=== PATIENT | male | born 1960 | race Caucasian/White ===

== ENCOUNTER 2017-07-30 07:28 | Emergency (ER) | payer OTHER, SELFPAY ==
[2017-07-30 07:30] VITALS: BP 171/86; PULSE 50; RESP 18; TEMP 36; O2SAT 100; BMI 74.9
--- NOTE | 2017-07-30 07:40 | CT_ITS ---
STUDY: CT ABDOMEN AND PELVIS WITHOUT CONTRAST REASON FOR EXAM: Male, 57 years old. Sudden onset of left-sided flank pain at 4:00 AM. RADIATION DOSAGE (If Supplied By Facility): CTDIvol = ( 17.73 ) mGy, DLP = ( 969.92 ) mGycm TECHNIQUE: Transaxial images were obtained from the dome of the diaphragm to the symphysis pubis without oral contrast, and without intravenous contrast. Sagittal and coronal images were reconstructed. Individualized dose optimization techniques were used for this CT. COMPARISON: Prior comparison studies are not available for review at this time. FINDINGS: There is patchy right basilar airspace disease and/or atelectasis. The left lung base is clear. No pleural effusions are visualized. The visualized portions of the heart are within normal limits. There is hepatomegaly with diffuse hepatic enlargement. Maximum cephalocaudal dimension of the liver is 23.6 cm. There is decreased attenuation of the liver consistent with steatosis. There are multiple gallstones. Normal spleen. Normal pancreas. Normal bilateral adrenal glands. Normal right kidney. There is mild left-sided hydronephrosis and hydroureter secondary to distal ureteral calculus measuring 2 mm in size. There is mild left-sided perinephric stranding. Normal visualized stomach. There is no evidence for dilated bowel, ascites or pneumoperitoneum. Small bowel has a grossly normal appearance. Most of the stool is visible in the right colon. The descending colon is nondistended which gives appearance of thickened wills. There are multiple colonic diverticula, most numerous in the sigmoid colon. The appendix is visualized and appears normal. Normal abdominal aorta. Normal inferior vena cava. Normal retroperitoneum. The urinary bladder is nondistended. Normal visualized prostate gland. There is a small umbilical hernia containing fat. There is a small right-sided inguinal hernia containing fat. The bones appear osteopenic. There are degenerative changes of the sacroiliac joints. There is degenerative disc disease at L5-S1. There is multilevel thoracic spondylosis. CT/Abdomen/Pelvis without Cont IMPRESSION: 1. Mild left-sided hydronephrosis and hydroureter secondary to distal ureteral calculus. 2. Hepatic steatosis and hepatomegaly. 3. Colonic diverticulosis. 4. Cholelithiasis. Electronically Signed: Jessica Guzmán MD at 8:58 EDT , Service support ,
--- NOTE | 2017-07-30 07:42 | ED.VISSUMM ---
- ER Visit Summary Date of Service: 07/30/17 Chief Complaint: [] Left flank pain for him today History of Present Illness: The patient is a 57 M [] hx of high cholesterol only that apparently is controlled with meds, went to bed feeling fine and woke at 4 AM with pain to the left flank pain does not radiate he said no documented fever cough no shortness of breath normal bowel bladder habits no trauma he points directly to the left flank he has no midline lumbar or thoracic spine pain he has no history of back pain, kidney stones AAA or other elements he is otherwise been feeling fine no vomiting he did void urine today without difficulty normal Physical Examination: [] Signs are within normal range is resting comfortably bed he points direct his left flank region. Head neck chest unremarkable the abdomen is soft nontender lungs are clear heart tones appear normal the C-spine T-spine lumbar spine are nontender his pain is clearly in the muscular left flank he has full range of motion of his lower extremities his lower extremity exams unremarkable his neurologic exams unremarkable Test Results: [] Emergency Department Course and Treatment: [] ddx rather extensive V fluids pain meds labs CT Lab studies generally unremarkable see those reports creatinine 1.46, signs of hematuria on the UA, CT shows signs of kidney stone obstructing at UVJ level, please see all those reports Reevaluation is resting comforting the bed have explained all the above to him he feels well for discharged to follow-up with Dr. Uribe know of urology as an outpatient he will be started on Percocet Naprosyn Flomax he will return for change in symptoms Treatment Plan: [] Disposition: [] Home stable Impression: [] Flank pain related to obstructing left kidney stone This note was generated with [employer] dictation software. It may contain incorrect words, spelling, and punctuation that were not noted in review of the chart prior to signing ED Disposition - Plan for ED Patient: Chief Complaint: Back Referrals: Karrie Glass [NON-STAFF] -
[2017-07-30 08:04] LABS: Absolute Lymphocyte Count 1.23 X10^3/ul (0.83-4.51); Absolute Neutrophil Count 3.4 X10^3/uL (2.0-7.7); Basophil# 0.02 X10^3/uL; Basophil% 0.4 % (0-1); Eosinophil# 0.12 X10^3/uL; Eosinophils% 2.3 % (0-5); Hematocrit 39.3 % (40-54); Hemoglobin 13.8 g/dl (13.0-16.5); Lymphocyte # 1.23 X10^3/ul (4.0); Lymphocyte % 23.9 % (19-41); Mean Corp Hgb Conc 35.1 g/gl (32-36); Mean Corpuscular Volume 88.3 fL (80-94); Mean Platelet Vol. 8.9 fl (6.2-12.0); Monocyte# 0.39 X10^3/uL; Monocyte% 7.6 % (0-10); Neutrophil # 3.38 X10^3/uL (2.7-7.7); Neutrophil % 65.6 % (47-70); Platelet Count 283 K/mm3 (150-450); RBC Distribution Width CV 12.6 % (11.6-14.6); RBC Distribution Width SD 40.3 fl (35.1-43.9); Red Blood Count 4.45 M/mm3 (4.6-6.2); White Blood Count 5.2 K/mm3 (4.4-11.0)
[2017-07-30 08:06] LABS: POSITIVE COUNT NO; POSITIVE DIFFERENTIAL NO; POSITIVE MORPHOLOGY NO
[2017-07-30 08:14] LABS: Anion Gap 5 (5-15); BUN 25 mg/dL (7-18); BUN/Creat Ratio 17.1 RATIO (10-20); Calcium,Total 8.5 mg/dL (8.5-10.1); Chloride 108 mmol/L (98-107); Creatinine, Serum 1.46 mg/dL (0.70-1.30); EST Glomerular Filtration Rate 53 mL/min (>60); Est Glom Filt Rate - Afr Amer 64 mL/min (>60); Estimated Creatinine Clearance 62.01 ml/min; Glucose 112 mg/dL (74-106); Potassium 4.5 mmol/L (3.5-5.1); Sodium Level 138 mmol/L (136-145)
[2017-07-30] MEDS: Ondansetron 4 MG/2 ML Vial IV (08:20)
[2017-07-30] MEDS: morphine 8 MG/ML Syringe IV (08:20)
[2017-07-30] MEDS: 0.9% Normal Saline 1,000 ML 250 ML IV (08:21)
[2017-07-30 08:36] LABS: Bacteria 0 SEEN /hpf (None Seen); Mucous, Urine 0 SEEN /hpf (<or=2+); Squamous Epithelial Cells - UA 0 SEEN /hpf (0-5); White Blood Cells 0 SEEN /hpf (0-5)
[2017-07-30 08:39] LABS: Color, Urine Yellow (Yellow); Glucose, Dipstick Normal (Normal); Ketone-Dipstick 5 mg/dl (Negative); Leukocyte Esterase-Dipstick Negative /ul (Negative); Nitrite-Dipstick Negative (Negative); Occult Blood-Urine 250 /ul (Negative); Protein-Dipstick 15 mg/dl (Negative); Specific Gravity, Urine 1.025 (1.002-1.030); Urine Bilirubin Dipstick Negative (Negative); Urine Clarity Clear (Clear); Urine Urobilinogen Normal (Normal)
[2017-07-30 08:47] LABS: Red Blood Cells-Urine 10-25 SEEN /hpf (0-5)
--- NOTE | 2017-07-30 09:42 | ED.DEP ---
ED Disposition - Plan for ED Patient: Chief Complaint: Back Instructions: ED Stone Renal W Colic Prescriptions: Oxycodone HCl/Acetaminophen [Percocet 5/325] 1 tab PO Q6H PRN PRN 3 Days #12 tab PRN Reason: Pain Naproxen [Naprosyn] 500 mg PO BID PRN #20 tab Tamsulosin HCl [Flomax] 0.4 mg PO DAILY #7 cap Referrals: Karrie Glass [NON-STAFF] - Bereket Jean Baptiste MD [STAFF PHYSICIAN] -
[2017-07-30 10:09] VITALS: PULSE 54; RESP 17; O2SAT 100
== END 2017-07-30 10:11 | disposition home or self-care (01) ==
PROVIDERS: Emergency Provider Emergency Medicine; Family Provider Family Medicine; PCP Family Medicine
DX: N13.2 Hydronephrosis with renal and ureteral calculous obstruction (principal); R10.9 Unspecified abdominal pain; E78.00 Pure hypercholesterolemia, unspecified; Z79.899 Other long term (current) drug therapy
CPT/HCPCS: 74176; 80048; 81001; 85025; 96361; 96374; 96375; 99284; J7030; A4216; J2405

== ENCOUNTER → 2017-08-08 14:08 | Outpatient (CLI) | payer OTHER, SELFPAY ==
[2017-08-08 17:00] LABS: Creatinine, Serum 1.33 mg/dL (0.70-1.30); EST Glomerular Filtration Rate 59 mL/min (>60); Est Glom Filt Rate - Afr Amer 72 mL/min (>60)
== END ==
PROVIDERS: Family Provider Family Medicine; PCP Family Medicine; Visit Provider Nurse Practitioner Adult Health
DX: R79.89 Other specified abnormal findings of blood chemistry (principal); N21.1 Calculus in urethra; N13.30 Unspecified hydronephrosis
CPT/HCPCS: 36415; 82565

== ENCOUNTER → 2017-08-26 08:04 | Outpatient (CLI) | payer OTHER, SELFPAY ==
[2017-08-26 10:27] LABS: Creatinine, Serum 1.31 mg/dL (0.70-1.30); EST Glomerular Filtration Rate 60 mL/min (>60); Est Glom Filt Rate - Afr Amer 73 mL/min (>60)
== END ==
PROVIDERS: Family Provider Family Medicine; PCP Family Medicine; Visit Provider Nurse Practitioner Adult Health
DX: R79.89 Other specified abnormal findings of blood chemistry (principal)
CPT/HCPCS: 36415; 82565

== ENCOUNTER 2017-09-18 01:28 | Emergency (ER) | payer OTHER, SELFPAY ==
[2017-09-18 01:29] VITALS: BP 142/84; PULSE 52; RESP 18; TEMP 36.6; O2SAT 98; BMI 33.6
--- NOTE | 2017-09-18 01:40 | ED.VISSUMM ---
- ER Visit Summary Date of Service: 09/18/17 Chief Complaint: Right upper quadrant abdominal pain History of Present Illness: The patient is a 57 M E of kidney stones and gallstones. Recent CAT scan done in July of this year showed a left ureteral calculi and incidental finding of cholelithiasis. Patient states he had dinner tonight around 6 PM he had brought worst and corn. Shortly after that he started getting right upper quadrant abdominal pain with some nausea. Denies any vomiting. Denies any diarrhea chest pain or shortness of breath. Denies prior postprandial pain or symptoms. Denies any hematuria or dysuria. No fever. Physical Examination: Well-appearing middle-age male. Vital signs are stable and afebrile. H EENT exam unremarkable. Neck nontender. Lungs clear to auscultation bilaterally. Heart regular rate and rhythm no murmur rate about 60. Abdomen is soft. Nondistended. Normal bowel sounds. No peritoneal signs. Mild tenderness right upper quadrant. Other quadrants are nontender. No Slaughter sign. No McBurney's point tenderness. No hernia or masses. No signs of obstruction. He is moving all 4 extremities. They are neurovascularly intact. Back is nontender. Neurologically he is awake and alert with no focal motor deficits. Test Results: BC shows a white count of 6. A hemoglobin is 12.6 which is lower than his most recent hemoglobin of 13.8. However he is no signs of a GI bleed. Chemistries are unremarkable his gap is 7. His creatinine is 1.39 it has been that level in the past. Liver enzymes are normal. No signs of biliary obstruction. Lipase is normal 148. Emergency Department Course and Treatment: Patient has known history of gallstones on recent CT. This very well could be biliary colic. Labs will be obtained. Currently he did not want any pain or nausea medications. Treatment Plan: Repeat exam patient is doing well on 03 28. Abdomen is benign. No Slaughter sign. No peritoneal signs. Clinically he is feeling better and is comfortable being discharged to home. He will be instructed to follow-up with Dr. Landry Jorge recreation adviser for no doc and for the [facility] tonight for further attenuation of right upper quadrant abdominal pain and known gallstones. Disposition: Discharge Impression: Acute abdominal pain secondary to biliary colic History of gallstones This note was generated with [employer] dictation software. It may contain incorrect words, spelling, and punctuation that were not noted in review of the chart prior to signing ED Disposition - Plan for ED Patient: Disposition: Home or Assisted Living Chief Complaint: Abd Pain Instructions: ED Abdominal Pain Gallstone Poss Prescriptions: Ondansetron [Zofran Odt] 8 mg PO Q8H PRN PRN #10 PRN Reason: Nausea Referrals: Carlos Jorge MD [STAFF PHYSICIAN] - As soon as possible Additional Instructions: Tylenol and motrin for pain Zofran for nausea as needed Return if increasing pain, fever or feeling worse. Call and follow up with Dr. Jorge or another general surgeon to discuss possible removal of your gall bladder due to gall stones seen on your Cat scan in July.
--- NOTE | 2017-09-18 01:43 | ED.DCSUM_ITS ---
- ER Visit Summary Date of Service: 09/18/17 Chief Complaint: Right upper quadrant abdominal pain History of Present Illness: The patient is a 57 M E of kidney stones and gallstones. Recent CAT scan done in July of this year showed a left ureteral calculi and incidental finding of cholelithiasis. Patient states he had dinner tonight around 6 PM he had brought worst and corn. Shortly after that he started getting right upper quadrant abdominal pain with some nausea. Denies any vomiting. Denies any diarrhea chest pain or shortness of breath. Denies prior postprandial pain or symptoms. Denies any hematuria or dysuria. No fever. Physical Examination: Well-appearing middle-age male. Vital signs are stable and afebrile. H EENT exam unremarkable. Neck nontender. Lungs clear to auscultation bilaterally. Heart regular rate and rhythm no murmur rate about 60. Abdomen is soft. Nondistended. Normal bowel sounds. No peritoneal signs. Mild tenderness right upper quadrant. Other quadrants are nontender. No Slaughter sign. No McBurney's point tenderness. No hernia or masses. No signs of obstruction. He is moving all 4 extremities. They are neurovascularly intact. Back is nontender. Neurologically he is awake and alert with no focal motor deficits. Test Results: BC shows a white count of 6. A hemoglobin is 12.6 which is lower than his most recent hemoglobin of 13.8. However he is no signs of a GI bleed. Chemistries are unremarkable his gap is 7. His creatinine is 1.39 it has been that level in the past. Liver enzymes are normal. No signs of biliary obstruction. Lipase is normal 148. Emergency Department Course and Treatment: Patient has known history of gallstones on recent CT. This very well could be biliary colic. Labs will be obtained. Currently he did not want any pain or nausea medications. Treatment Plan: Repeat exam patient is doing well on 03 28. Abdomen is benign. No Slaughter sign. No peritoneal signs. Clinically he is feeling better and is comfortable being discharged to home. He will be instructed to follow-up with Dr. Landry Jorge communications editor for no doc and for the [facility] tonight for further attenuation of right upper quadrant abdominal pain and known gallstones. Disposition: Discharge Impression: Acute abdominal pain secondary to biliary colic History of gallstones This note was generated with [employer] dictation software. It may contain incorrect words, spelling, and punctuation that were not noted in review of the chart prior to signing ED Disposition - Plan for ED Patient: Disposition: Home or Assisted Living Chief Complaint: Abd Pain Instructions: ED Abdominal Pain Gallstone Poss Prescriptions: Ondansetron [Zofran Odt] 8 mg PO Q8H PRN PRN #10 PRN Reason: Nausea Referrals: Carlos Jorge MD [STAFF PHYSICIAN] - As soon as possible Additional Instructions: Tylenol and motrin for pain Zofran for nausea as needed Return if increasing pain, fever or feeling worse. Call and follow up with Dr. Jorge or another general surgeon to discuss possible removal of your gall bladder due to gall stones seen on your Cat scan in July.
[2017-09-18 01:59] LABS: Absolute Lymphocyte Count 2.02 X10^3/ul (0.83-4.51); Absolute Neutrophil Count 3.4 X10^3/uL (2.0-7.7); Basophil# 0.05 X10^3/uL; Basophil% 0.8 % (0-1); Eosinophil# 0.19 X10^3/uL; Eosinophils% 3.1 % (0-5); Hematocrit 36.5 % (40-54); Hemoglobin 12.6 g/dl (13.0-16.5); Lymphocyte # 2.02 X10^3/ul (4.0); Lymphocyte % 32.6 % (19-41); Mean Corp Hgb Conc 34.5 g/gl (32-36); Mean Corpuscular Volume 89.7 fL (80-94); Mean Platelet Vol. 8.8 fl (6.2-12.0); Monocyte# 0.47 X10^3/uL; Monocyte% 7.6 % (0-10); Neutrophil # 3.44 X10^3/uL (2.7-7.7); Neutrophil % 55.6 % (47-70); POSITIVE COUNT NO; POSITIVE DIFFERENTIAL NO; POSITIVE MORPHOLOGY NO; Platelet Count 325 K/mm3 (150-450); RBC Distribution Width CV 12.8 % (11.6-14.6); RBC Distribution Width SD 41.2 fl (35.1-43.9); Red Blood Count 4.07 M/mm3 (4.6-6.2); White Blood Count 6.2 K/mm3 (4.4-11.0)
--- NOTE | 2017-09-18 02:04 | ED.DEP ---
ED Disposition - Plan for ED Patient: Disposition: Home or Assisted Living Chief Complaint: Abd Pain Instructions: ED Abdominal Pain Gallstone Poss Prescriptions: Ondansetron [Zofran Odt] 8 mg PO Q8H PRN PRN #10 PRN Reason: Nausea Referrals: Carlos Jorge MD [STAFF PHYSICIAN] - As soon as possible Additional Instructions: Tylenol and motrin for pain Zofran for nausea as needed Return if increasing pain, fever or feeling worse. Call and follow up with Dr. Jorge or another general surgeon to discuss possible removal of your gall bladder due to gall stones seen on your Cat scan in July.
[2017-09-18 02:11] LABS: AST(SGOT) 27 U/L (15-37); Alanine Aminotransfer ALT/SGPT 51 U/L (16-61); Albumin, Serum 3.5 g/dL (3.2-5.0); Alkaline Phosphatase 39 U/L (45-117); Anion Gap 7 (5-15); BUN 21 mg/dL (7-18); BUN/Creat Ratio 15.1 RATIO (10-20); Bilirubin, Direct 0.09 mg/dL (0.00-0.30); Calcium,Total 8.4 mg/dL (8.5-10.1); Chloride 109 mmol/L (98-107); Creatinine, Serum 1.39 mg/dL (0.70-1.30); EST Glomerular Filtration Rate 56 mL/min (>60); Est Glom Filt Rate - Afr Amer 68 mL/min (>60); Estimated Creatinine Clearance 67.06 ml/min; Globulin 3.5 g/dL (2.2-4.2); Glucose 137 mg/dL (74-106); Lipase 148 U/L (73-393); Potassium 3.8 mmol/L (3.5-5.1); Sodium Level 141 mmol/L (136-145)
[2017-09-18 02:31] VITALS: PULSE 58; RESP 16; O2SAT 95
== END 2017-09-18 02:32 | disposition home or self-care (01) ==
PROVIDERS: Emergency Provider Emergency Medicine; Family Provider Family Medicine; PCP Family Medicine
DX: K80.50 Calculus of bile duct without cholangitis or cholecystitis without obstruction (principal); R10.11 Right upper quadrant pain; E78.00 Pure hypercholesterolemia, unspecified; Z87.19 Personal history of other diseases of the digestive system; Z87.442 Personal history of urinary calculi; Z79.899 Other long term (current) drug therapy
CPT/HCPCS: 80048; 80076; 83690; 85025; 99283; A4216

== ENCOUNTER 2018-04-18 18:08 | Emergency (ER) | payer OTHER, SELFPAY ==
[2018-04-18 18:11] VITALS: BP 159/92; PULSE 102; RESP 19; TEMP 37.5; O2SAT 99; BMI 33.9
--- NOTE | 2018-04-18 19:47 | US_ITS ---
We are attempting to reach Primo Torres MD to discuss findings. An addendum with communication details will be sent when the communication is complete. STUDY: VENOUS DOPPLER ULTRASOUND - BILATERAL LOWER EXTREMITIES REASON FOR EXAM: Male, 57 years old. Left leg pain TECHNIQUE: Ultrasound evaluation of the deep vein system to include chen-scale imaging and compression was performed. Chen-scale imaging and Doppler sonographic evaluation, including duplex spectral analysis and qualitative color flow sonography, was performed. COMPARISON: None. FINDINGS: RIGHT LEG Common Femoral Vein: Normal compression, spontaneity and augmentation. Normal color Doppler. Common Femoral Vein/Greater Saphenous Junction: Normal compression, spontaneity and augmentation. Normal color Doppler. Deep Femoral Vein: Normal compression, spontaneity and augmentation. Normal color Doppler. Femoral Proximal: Normal compression, spontaneity and augmentation. Normal color Doppler. Femoral Middle: Normal compression, spontaneity and augmentation. Normal color Doppler. Femoral Distal: Normal compression, spontaneity and augmentation. Normal color Doppler. Popliteal Vein: Normal compression, spontaneity and augmentation. Normal color Doppler. Posterior Tibial Vein: Normal compression, spontaneity and augmentation. Normal color Doppler. Peroneal Vein: Normal compression, spontaneity and augmentation. Normal color Doppler. LEFT LEG Common Femoral Vein: Normal compression, spontaneity and augmentation. Normal color Doppler. Common Femoral Vein/Greater Saphenous Junction: Normal compression, spontaneity and augmentation. Normal color Doppler. Deep Femoral Vein: Normal compression, spontaneity and augmentation. Normal color Doppler. Femoral vein: Absent compression, spontaneity and augmentation. Absent color Doppler. Popliteal Vein: Absent compression, spontaneity and augmentation. Absent color Doppler. Posterior Tibial Vein: Absent compression, spontaneity and augmentation. Absent color Doppler. Peroneal Vein: Normal compression, spontaneity and augmentation. Normal color Doppler. US/Venous Duplex Imag/Greg Extrem IMPRESSION: DVT femoral vein, popliteal vein and posterior tibial vein Electronically Signed: Petar Gomez MD at 23:26 EDT , Service support ,
[2018-04-18 20:17] LABS: Absolute Lymphocyte Count 1.19 X10^3/ul (0.83-4.51); Absolute Neutrophil Count 2.9 X10^3/uL (2.0-7.7); Basophil# 0.01 X10^3/uL; Basophil% 0.2 % (0-1); Eosinophil# 0.07 X10^3/uL; Eosinophils% 1.6 % (0-5); Hematocrit 39.7 % (40-54); Hemoglobin 13.1 g/dl (13.0-16.5); Lymphocyte # 1.19 X10^3/ul (4.0); Lymphocyte % 26.7 % (19-41); Mean Corpuscular Hgb 29.4 pg (27.0-32.0); Mean Corpuscular Volume 89.2 fL (80-94); Mean Platelet Vol. 8.5 fl (6.2-12.0); Monocyte% 6.7 % (0-10); Neutrophil # 2.89 X10^3/uL (2.7-7.7); Neutrophil % 64.8 % (47-70); POSITIVE COUNT NO; POSITIVE DIFFERENTIAL NO; POSITIVE MORPHOLOGY NO; Platelet Count 186 K/mm3 (150-450); RBC Distribution Width SD 42.3 fl (35.1-43.9); Red Blood Count 4.45 M/mm3 (4.6-6.2); White Blood Count 4.5 K/mm3 (4.4-11.0)
[2018-04-18 20:22] LABS: Anion Gap 9 (5-15); BUN 19 mg/dL (7-18); BUN/Creat Ratio 15.7 RATIO (10-20); Calcium,Total 8.4 mg/dL (8.5-10.1); Chloride 105 mmol/L (98-107); Creatinine, Serum 1.21 mg/dL (0.70-1.30); EST Glomerular Filtration Rate 66 mL/min (>60); Est Glom Filt Rate - Afr Amer 80 mL/min (>60); Estimated Creatinine Clearance 74.82 ml/min; Glucose 96 mg/dL (74-106); Sodium Level 141 mmol/L (136-145)
[2018-04-18 20:38] LABS: Lactic Acid 0.7 mmol/L (0.4-2.0)
--- NOTE | 2018-04-18 21:11 | ED.DCSUM_ITS ---
- ER Visit Summary Date of Service: 04/18/18 Chief Complaint: [Left leg pain] History of Present Illness: The patient is a 57 M [presents the emergency department complaint of pain in his left leg that started earlier today. Patient's had subjective fever at home and some chills. Denies any cough. He has had some mild nausea. No recent travel other than in February he flew out to [place]. Patient has no injury to the leg. Denies any chest pain or shortness of breath.] Physical Examination: [HEENT-PERRLA, EOMI. Cranial nerves II through XII grossly intact. TMs clear. Mucous membranes moist. No adenopathy. Cardiovascular-regular rate and rhythm without murmur or ectopy Lungs-clear to auscultation, chest wall stable without crepitus or subcu emphysema Abdomen-normoactive bowel sounds, soft, nontender, no rebound or rigidity, no peritoneal signs. Extremities-intact ?4, normal range of motion, normal pulses, atraumatic. Patient has some subtle swelling diffusely about the left leg with positive Homans sign. There is some faint erythema however no significant discoloration of the skin compared to the right side. The leg is not overtly cellulitic. He has normal dorsal pedal and posterior tibial pulses. Patient has normal popliteal pulse.] Test Results: [CBC with differential is normal. Chemistries were normal. BUN was 19 and creatinine 1.21. Ultrasound of the left leg was obtained and showed a deep venous thrombosis from the femoral vein down to the ankle.] Emergency Department Course and Treatment: [Patient was started on Eliquis] Treatment Plan: [Patient will be treated with Eliquis and advised to elevate the extremity.] Disposition: [Discharged home in stable condition. Patient advised to follow-up with primary care physician within next 3-5 days.] Impression: [Left lower extremity DVT] This note was generated with [employer] dictation software. It may contain incorrect words, spelling, and punctuation that were not noted in review of the chart prior to signing ED Disposition - Plan for ED Patient: Referrals: Sharif Hernandez MD [Primary Care Provider] -
--- NOTE | 2018-04-18 21:12 | ED.DEP ---
ED Disposition - Plan for ED Patient: Instructions: ED DVT Prescriptions: Apixaban [Eliquis] 5 mg PO BID #74 tab Referrals: Sharif Hernandez MD [Primary Care Provider] - 3-5 Days
[2018-04-18 22:42] VITALS: BP 142/76; PULSE 81; RESP 16
[2018-04-18] MEDS: APIXABAN 5 MG TABLET PO (22:43)
[2018-04-24 16:07] LABS: Dilute Prothrombin Time (dPT) 42.7 sec (0.0-55.0); Dilute Russell Viper Venom 42.2 sec (0.0-47.0); PTT-LA 37.5 sec (0.0-51.9); Thrombin Time 17.1 sec (0.0-23.0); dPT Confirm Ratio 0.87 Ratio (0.00-1.40)
[2018-04-25 11:32] LABS: Anti-Cardiolipin Ab, IgG, Qn < 9 GPL U/mL (0-14); Anti-Cardiolipin Ab, IgM, Qn 21 MPL U/mL (0-12); Antithrombin 3 Function 96 % (75-135); Beta-2-Glycoprotein I IgA <9 (0-25); Beta-2-Glycoprotein I IgG <9 (0-20); Beta-2-Glycoprotein I IgM <9 (0-32); Interpretation Comment: (.); Protein C Antigen 88 % (60-150); Protein S, Free 96 % (57-157); Protein S, Total 117 % (60-150)
== END 2018-04-18 22:54 | disposition home or self-care (01) ==
LOC: ED 19:55
PROVIDERS: Emergency Provider Emergency Medicine; Family Provider Family Medicine; PCP Family Medicine
DX: I82.412 Acute embolism and thrombosis of left femoral vein (principal); I82.432 Acute embolism and thrombosis of left popliteal vein; I82.442 Acute embolism and thrombosis of left tibial vein; Z79.899 Other long term (current) drug therapy
CPT/HCPCS: 80048; 81240; 81241; 83605; 85025; 85300; 85302; 85305; 85306; 86146; 86147; 87040; 93970; 99284; A4216

== ENCOUNTER 2018-05-26 09:49 | Inpatient (IN) | payer OTHER, SELFPAY ==
[2018-05-26] VITALS (10 sets, daily range): BP systolic 131–150; BP diastolic 70–86; PULSE 56–92; RESP 12–18; TEMP 36.2–36.9; O2SAT 94–97; BMI 32.6; BMI 34.5; BMI 34.6
--- NOTE | 2018-05-26 09:55 | RAD_ITS ---
STUDY: X-RAY CHEST REASON FOR EXAM: Male, 57 years old. Chest pain. TECHNIQUE: Single AP portable view of the chest. COMPARISON: None. FINDINGS: EKG electrodes are seen. Mild increased markings at the lung bases suggestive of bibasilar linear atelectasis versus early infiltrate. Follow-up is recommended. There is no demonstrated pleural abnormality. Normal size heart. Normal mediastinum and jem. Normal visualized pulmonary arteries. Normal visualized aortic arch and descending thoracic aorta. Normal visualized thoracic spine. Normal visualized ribs, clavicles, and shoulders. There is no demonstrated abnormality of the visualized soft tissue structures of the upper abdomen. RAD/Chest 1 View (Portable) IMPRESSION: Increased markings at the lung bases suggestive of bibasilar atelectasis and/or early infiltrates. Follow-up is recommended. Electronically Signed: Arpan Graves, at 10:24 EDT , Service support ,
--- NOTE | 2018-05-26 09:55 | EKG12_ITS ---
Test Reason : CP Blood Pressure : / mmHG Vent. Rate : 062 BPM Atrial Rate : 062 BPM P-R Int : 150 ms QRS Dur : 086 ms QT Int : 422 ms P-R-T Axes : 033 011 014 degrees QTc Int : 428 ms Normal sinus rhythm Minimal voltage criteria for LVH, may be normal variant Poor R-Wave Progression Borderline ECG Confirmed by MARC JAMES, KJ ([id number]), movie editor CLAUDIA CROWDER ([id number]) on 05/29/2018 10:46:07 AM Referred By: Tacos Barcenas Confirmed By:KJ TRAN MD
--- NOTE | 2018-05-26 10:07 | ED.RN ---
NO OLD EKG
--- NOTE | 2018-05-26 10:21 | ED.VIS.GEN ---
History of Present Illness Chief Complaint: Chest Pain Informant: Patient, Significant Other Onset: Yesterday Context: Sudden Onset Timing: Intermittent, Waxes and wanes Quality: Pleuritic lower left chest pain Location: Anterior posterior lower left lung field Current Severity: Mild Maximum Severity: Moderate Worsened by: Deep breathing Relieved by: Nothing Associated Symptoms: Mild dyspnea Narrative: Patient was diagnosed approximately 6 weeks ago with extensive DVT left lower extremity. Yesterday evening while sitting he developed abrupt pleuritic anterior and posterior left lower lung field pleuritic chest pain. He had mild dyspnea. He states his left lower extremity swelling and discoloration is improved. He states he is compliant with Eliquis which he was prescribed. The DVT was unprovoked. He denies weight loss or night sweats. He has no other complaints. Prior similar symptoms: No Recent Illness/Hospitalization: Yes - Past Medical History (1) History of hypercholesterolemia Status: Acute (2) Deep vein thrombosis (DVT) of left lower extremity Status: Acute Past Medical History - Allergies and Home Meds Allergies/Adverse Reactions: Allergies bee venom protein (honey bee) Allergy (Verified 05/26/18 09:54) Swelling Primary Care Physician: Sharif Hernandez MD [Primary Care Provider] - Prior records reviewed: Yes Surgical History: no surgical history Lives: Spouse/ Significant Other, With Family Smoking Status: Never smoker Drugs: None Review of Systems General: Denies: Chills, Fever, Malaise, Sweats, Weight loss - Worse. Eyes: Denies: Visual changes - bilaterally, Diplopia ENT: Denies: Rhinorrhea, Sore throat Cardiovascular: Reports: Chest pain - .. Denies: Palpitations, Heart racing Respiratory: Reports: Dyspnea. Denies: Cough, Sputum, Dyspnea on exertion, Orthopnea, Paroxysmal nocturnal dyspnea - . Gastrointestinal: Denies: Abdominal pain, Nausea, Vomiting, Diarrhea, Melena, Hematochezia Genitourinary: Denies: Dysuria, Hematuria, Frequency Musculoskeletal: Reports: Swelling - Swelling left lower extremity secondary to DVT. Denies: Back pain, Extremity Pain Skin: Denies: Rash, Wounds Neurological: Denies: Headache, Weakness, Numbness Hematologic: Denies: Easy bruising, Easy bleeding Allergy: Denies: Uticaria Physical Exam Vital Signs/Narrative: Vital Signs Temp Pulse Resp BP Pulse Ox 05/26/18 09:50 97.2 F L 68 16 150/79 H 97 Inital Vital Signs reviewed: Yes General: Well nourished, Well developed, No Acute Distress Head: Normocephalic, Atraumatic Eyes: Perrl, EOMI ENT: Moist mucous membranes, No rhinorrhea Neck: Supple, Nontender, No lymphadenopathy, No JVD Cardiovascular: Regular rate, Regular rhythm, No murmurs, Normal S1, Normal S2 Respiratory: No distress, CTA bilaterally, Chest nontender. Negative for: Rales, Rhonchi, Wheezing, Decreased Air Movement Abdomen: Soft, Nontender, Nondistended, Normal bowel sounds Back: Nontender, Normal Inspection Extremities: Nontender, No edema, Edema - There is swelling and asymmetry secondary to recent diagnosis of DVT left lower extremity. Skin: Normal color, No rash Neurological: Alert, Oriented x3, Cranial nerves II-XII grossly intact, Normal Strength, Normal Sensation Psychological: Normal affect, Normal Mood Diagnostic/Tx/Re-eval Chest X-Ray - ED: 1 View, Read by ED Physician, Normal, Heart, Bony Structures, No Acute Disease, - - Portable x-ray with limited inspiratory volume. There is evidence of atelectasis. There is no infiltrate, effusion or hemothorax. Impressions Chest X-Ray 05/26/18 09:55 IMPRESSION: Increased markings at the lung bases suggestive of bibasilar atelectasis and/or early infiltrates. Follow-up is recommended. Electronically Signed: Arpan Graves, at 10:24 EDT , Service support , Chest CTA 05/26/18 10:26 IMPRESSION: Bilateral nonocclusive pulmonary emboli. Focal infiltrate in the superior segment of the left lower lobe as well as small left pleural effusion with underlying atelectasis and/or infiltrate. N.B. : The above information has been verbally conveyed by Arpan Graves to Barrera Ceja MD, on 05/26/2018 11:35:43 (ET). Electronically Signed: Arpan Graves, at 11:37 EDT , Service support , ADDENDUM: 05/26/18 1144 IMPRESSION: Bilateral nonocclusive pulmonary emboli. Focal infiltrate in the superior segment of the left lower lobe as well as small left pleural effusion with underlying atelectasis and/or infiltrate. N.B. : The above information has been verbally conveyed by Arpan Graves to Barrera Ceja MD, on 05/26/2018 11:35:43 (ET). Electronically Signed: Arpan Graves, at 11:37 EDT , Service support , 05/26/18 09:55 Chest 1 View (Portable) [RAD] Stat 05/26/18 10:26 CTA Chest W/WO Contrast [CT] Stat Laboratory Results 05/26/18 05/26/18 05/26/18 10:18 10:18 10:18 WBC 7.2 RBC 4.58 L Hgb 13.7 Hct 40.2 MCV 87.8 MCH 29.9 MCHC 34.1 RDW 13.4 RDW Differential 42.8 Plt Count 255 MPV 8.6 Immature Gran % (Auto) 0.100 Neut % (Auto) 65.7 Lymph % (Auto) 24.4 [place] % (Auto) 7.6 Eos % (Auto) 1.9 Baso % (Auto) 0.3 Absolute Neuts (auto) 4.8 Absolute Lymphs (auto) 1.77 Total Counted Not Reportable Sodium 138 Potassium 4.1 Chloride 107 Carbon Dioxide 24.0 Anion Gap 7 BUN 18 Creatinine 1.14 Estim Creat Clear Calc 84.12 Est GFR (MDRD) Af Amer 85 Est GFR (MDRD) Non-Af 70 BUN/Creatinine Ratio 15.8 Glucose 99 Calcium 8.6 Troponin I < 0.015 B-Natriuretic Peptide 23.6 - Medical Decision Making With known history of extensive DVT left lower extremity and abrupt onset of pleuritic chest pain on the left need to evaluate for pulmonary embolus. Baseline blood work was obtained. Chest x-ray was obtained to determine if other cause for pleuritic pain. Since there is no abnormality on chest x-ray will obtain a CTA of the chest. Patient has bilateral nonocclusive lower lobe pulmonary emboli. Case discussed with Dr. Jame Parr. He requested consultation with hematology. Dr. Pressley is on-call and was paged. Case was discussed with hospitalist. Patient to be admitted. - Critical Care Time Critical care time (excluding procedures): 30-74 minutes - 32 minutes, Discussing w/Patient &/or Family/Welt Slasher, Discussing w/Consultants, Arranging Admission or Transfer ED Disposition - Plan for ED Patient: Diagnosis: Bilateral pulmonary embolism Referrals: Sharif Hernandez MD [Primary Care Provider] -
--- NOTE | 2018-05-26 10:26 | CT_ITS ---
STUDY: CTA CHEST REASON FOR EXAM: Male, 57 years old. Chest discomfort. History of DVT. Patient is on Eliquis. RADIATION DOSAGE (If Supplied By Facility): CTDIvol = ( 12.59 ) mGy, DLP = ( 527.95 ) mGycm TECHNIQUE: The examination was performed with the intravenous administration of 100mL IV Isovue 370. Post-processing of the angiographic images was performed, with multiplanar reformation and 3D reconstruction. Individualized dose optimization techniques were used for this CT. COMPARISON: None. FINDINGS: There are several small nonocclusive intraluminal filling defects in branches of the right lower lobe as well as upper lobe and intermediate stem pulmonary arteries. Focal nonocclusive filling defects are also seen in branches of the left lower lobe pulmonary artery. There is atherosclerotic calcification of the aortic arch with tortuosity. There is no demonstrated aortic dissection. There are calcifications of the coronary arteries. Normal mediastinum. Normal hilar regions. Normal visualized trachea and bronchi. The lungs are well expanded. Patchy infiltrate in the superior segment of the left lower lobe. Increased markings in the left lower lobe with small left pleural effusion. Minimal increased linear markings in the right lower lobe suggestive of scarring. Normal chest wall structures. There are degenerative changes of thoracic spine. There are multiple small gallstones. Fatty infiltration of the liver. Small hiatal hernia. CT/CTA Chest W/WO Contrast IMPRESSION: Bilateral nonocclusive pulmonary emboli. Focal infiltrate in the superior segment of the left lower lobe as well as small left pleural effusion with underlying atelectasis and/or infiltrate. N.B. : The above information has been verbally conveyed by Arpan Graves to Barrera Ceja MD, on 05/26/2018 11:35:43 (ET). Electronically Signed: Arpan Graves, at 11:37 EDT , Service support ,
--- NOTE | 2018-05-26 10:26 | ED.DCSUM_ITS ---
History of Present Illness Chief Complaint: Chest Pain Informant: Patient, Significant Other Onset: Yesterday Context: Sudden Onset Timing: Intermittent, Waxes and wanes Quality: Pleuritic lower left chest pain Location: Anterior posterior lower left lung field Current Severity: Mild Maximum Severity: Moderate Worsened by: Deep breathing Relieved by: Nothing Associated Symptoms: Mild dyspnea Narrative: Patient was diagnosed approximately 6 weeks ago with extensive DVT left lower extremity. Yesterday evening while sitting he developed abrupt pleuritic anterior and posterior left lower lung field pleuritic chest pain. He had mild dyspnea. He states his left lower extremity swelling and discoloration is improved. He states he is compliant with Eliquis which he was prescribed. The DVT was unprovoked. He denies weight loss or night sweats. He has no other complaints. Prior similar symptoms: No Recent Illness/Hospitalization: Yes - Past Medical History (1) History of hypercholesterolemia Status: Acute (2) Deep vein thrombosis (DVT) of left lower extremity Status: Acute Past Medical History - Allergies and Home Meds Allergies/Adverse Reactions: Allergies bee venom protein (honey bee) Allergy (Verified 05/26/18 09:54) Swelling Primary Care Physician: Sharif Hernandez MD [Primary Care Provider] - Prior records reviewed: Yes Surgical History: no surgical history Lives: Spouse/ Significant Other, With Family Smoking Status: Never smoker Drugs: None Review of Systems General: Denies: Chills, Fever, Malaise, Sweats, Weight loss - Worse. Eyes: Denies: Visual changes - bilaterally, Diplopia ENT: Denies: Rhinorrhea, Sore throat Cardiovascular: Reports: Chest pain - .. Denies: Palpitations, Heart racing Respiratory: Reports: Dyspnea. Denies: Cough, Sputum, Dyspnea on exertion, Orthopnea, Paroxysmal nocturnal dyspnea - . Gastrointestinal: Denies: Abdominal pain, Nausea, Vomiting, Diarrhea, Melena, Hematochezia Genitourinary: Denies: Dysuria, Hematuria, Frequency Musculoskeletal: Reports: Swelling - Swelling left lower extremity secondary to DVT. Denies: Back pain, Extremity Pain Skin: Denies: Rash, Wounds Neurological: Denies: Headache, Weakness, Numbness Hematologic: Denies: Easy bruising, Easy bleeding Allergy: Denies: Uticaria Physical Exam Vital Signs/Narrative: Vital Signs Temp Pulse Resp BP Pulse Ox 05/26/18 09:50 97.2 F L 68 16 150/79 H 97 Inital Vital Signs reviewed: Yes General: Well nourished, Well developed, No Acute Distress Head: Normocephalic, Atraumatic Eyes: Perrl, EOMI ENT: Moist mucous membranes, No rhinorrhea Neck: Supple, Nontender, No lymphadenopathy, No JVD Cardiovascular: Regular rate, Regular rhythm, No murmurs, Normal S1, Normal S2 Respiratory: No distress, CTA bilaterally, Chest nontender. Negative for: Rales, Rhonchi, Wheezing, Decreased Air Movement Abdomen: Soft, Nontender, Nondistended, Normal bowel sounds Back: Nontender, Normal Inspection Extremities: Nontender, No edema, Edema - There is swelling and asymmetry secondary to recent diagnosis of DVT left lower extremity. Skin: Normal color, No rash Neurological: Alert, Oriented x3, Cranial nerves II-XII grossly intact, Normal Strength, Normal Sensation Psychological: Normal affect, Normal Mood Diagnostic/Tx/Re-eval Chest X-Ray - ED: 1 View, Read by ED Physician, Normal, Heart, Bony Structures, No Acute Disease, - - Portable x-ray with limited inspiratory volume. There is evidence of atelectasis. There is no infiltrate, effusion or hemothorax. Impressions Chest X-Ray 05/26/18 09:55 IMPRESSION: Increased markings at the lung bases suggestive of bibasilar atelectasis and/or early infiltrates. Follow-up is recommended. Electronically Signed: Arpan Graves, at 10:24 EDT , Service support , Chest CTA 05/26/18 10:26 IMPRESSION: Bilateral nonocclusive pulmonary emboli. Focal infiltrate in the superior segment of the left lower lobe as well as small left pleural effusion with underlying atelectasis and/or infiltrate. N.B. : The above information has been verbally conveyed by Arpan Graves to Barrera Ceja MD, on 05/26/2018 11:35:43 (ET). Electronically Signed: Arpan Graves, at 11:37 EDT , Service support , ADDENDUM: 05/26/18 1144 IMPRESSION: Bilateral nonocclusive pulmonary emboli. Focal infiltrate in the superior segment of the left lower lobe as well as small left pleural effusion with underlying atelectasis and/or infiltrate. N.B. : The above information has been verbally conveyed by Arpan Graves to Barrera Ceja MD, on 05/26/2018 11:35:43 (ET). Electronically Signed: Arpan Graves, at 11:37 EDT , Service support , 05/26/18 09:55 Chest 1 View (Portable) [RAD] Stat 05/26/18 10:26 CTA Chest W/WO Contrast [CT] Stat Laboratory Results 05/26/18 05/26/18 05/26/18 10:18 10:18 10:18 WBC 7.2 RBC 4.58 L Hgb 13.7 Hct 40.2 MCV 87.8 MCH 29.9 MCHC 34.1 RDW 13.4 RDW Differential 42.8 Plt Count 255 MPV 8.6 Immature Gran % (Auto) 0.100 Neut % (Auto) 65.7 Lymph % (Auto) 24.4 [place] % (Auto) 7.6 Eos % (Auto) 1.9 Baso % (Auto) 0.3 Absolute Neuts (auto) 4.8 Absolute Lymphs (auto) 1.77 Total Counted Not Reportable Sodium 138 Potassium 4.1 Chloride 107 Carbon Dioxide 24.0 Anion Gap 7 BUN 18 Creatinine 1.14 Estim Creat Clear Calc 84.12 Est GFR (MDRD) Af Amer 85 Est GFR (MDRD) Non-Af 70 BUN/Creatinine Ratio 15.8 Glucose 99 Calcium 8.6 Troponin I < 0.015 B-Natriuretic Peptide 23.6 - Medical Decision Making With known history of extensive DVT left lower extremity and abrupt onset of pleuritic chest pain on the left need to evaluate for pulmonary embolus. Baseline blood work was obtained. Chest x-ray was obtained to determine if other cause for pleuritic pain. Since there is no abnormality on chest x-ray will obtain a CTA of the chest. Patient has bilateral nonocclusive lower lobe pulmonary emboli. Case discussed with Dr. Jame Parr. He requested consultation with hematology. Dr. Pressley is on-call and was paged. Case was discussed with hospitalist. Patient to be admitted. - Critical Care Time Critical care time (excluding procedures): 30-74 minutes - 32 minutes, Discussing w/Patient &/or Family/Fisheries Inspector, Discussing w/Consultants, Arranging Admission or Transfer ED Disposition - Plan for ED Patient: Diagnosis: Bilateral pulmonary embolism Referrals: Sharif Hernandez MD [Primary Care Provider] -
[2018-05-26 10:27] LABS: Absolute Lymphocyte Count 1.77 X10^3/ul (0.83-4.51); Absolute Neutrophil Count 4.8 X10^3/uL (2.0-7.7); Basophil# 0.02 X10^3/uL; Basophil% 0.3 % (0-1); Eosinophil# 0.14 X10^3/uL; Eosinophils% 1.9 % (0-5); Hematocrit 40.2 % (40-54); Hemoglobin 13.7 g/dl (13.0-16.5); Lymphocyte # 1.77 X10^3/ul (4.0); Lymphocyte % 24.4 % (19-41); Mean Corp Hgb Conc 34.1 g/gl (32-36); Mean Corpuscular Hgb 29.9 pg (27.0-32.0); Mean Corpuscular Volume 87.8 fL (80-94); Mean Platelet Vol. 8.6 fl (6.2-12.0); Monocyte# 0.55 X10^3/uL; Monocyte% 7.6 % (0-10); Neutrophil # 4.75 X10^3/uL (2.7-7.7); Neutrophil % 65.7 % (47-70); Platelet Count 255 K/mm3 (150-450); RBC Distribution Width CV 13.4 % (11.6-14.6); RBC Distribution Width SD 42.8 fl (35.1-43.9); Red Blood Count 4.58 M/mm3 (4.6-6.2); White Blood Count 7.2 K/mm3 (4.4-11.0)
[2018-05-26 10:28] LABS: POSITIVE COUNT NO; POSITIVE DIFFERENTIAL NO; POSITIVE MORPHOLOGY NO
[2018-05-26 10:44] LABS: Anion Gap 7 (5-15); BUN 18 mg/dL (7-18); BUN/Creat Ratio 15.8 RATIO (10-20); Calcium,Total 8.6 mg/dL (8.5-10.1); Chloride 107 mmol/L (98-107); Creatinine, Serum 1.14 mg/dL (0.70-1.30); EST Glomerular Filtration Rate 70 mL/min (>60); Est Glom Filt Rate - Afr Amer 85 mL/min (>60); Estimated Creatinine Clearance 84.12 ml/min; Glucose 99 mg/dL (74-106); Potassium 4.1 mmol/L (3.5-5.1); Sodium Level 138 mmol/L (136-145)
[2018-05-26 10:53] LABS: BNP,B-Type NATRIURETIC PEPTIDE 23.6 pg/mL (0-100)
--- NOTE | 2018-05-26 12:20 | CASEMGMT ---
RN CM Assessment Introduced role of RN CM to patient and Priya at bedside.? Patient is alert, oriented and able?to participate in RN CM Assessment. ?Care providers, pharmacy, and demographics verified. Presentation: x6 weeks ago w/extensive DVT LLE. Yesterday developed pleuritic CP Admit Dx: PE Re-Admit: No Barriers/Issues: Would like Information on LW/HPOA PCP: Sharif Hernandez Specialists: None [facility]acy[facility] Insurance: MMO Rx Benefit: Yes? LNOK: Priya Vazquez LW/HPOA: No, Would like info Living Arrangements:? Lives with in a SS Home, 1-2 steps to enter ADL?s: Independent with ambulation and ADL's Transportation: Patient drives, to drive on [place] DME: None HHC: None SNF: None Goal: Home DC PLAN: Home with no anticipated needs identified at this time. ALDO Smith
--- NOTE | 2018-05-26 13:22 | ONC.CONS.INP ---
Consult Referring Physician: Dr. Kevin Ceja/Dr. Maris Barcenas Consult Results: Pulmonary Embolism Subjective Date of Service:: 05/26/18 Chief Complaint: Asked to see pt for Pulmonary embolism while on Eliquis. History of Present Illness: 57y.o.man traveled to [place] by Plane in February 2018. In April 2018, developed pain in the Left leg, came to ER, found to have DVT in the left femoral, popliteal and posterior tibial veins. He was started on Eliquis onn 04/18/2018, reports that he is compliant. Yesterday, he developed SOB with chest pain which gets worse with deep breathing. Came to ER, CTA today 05/26/2018 shows Bilateral non occlusive PE. 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 - Social History Lives: Spouse/ Significant Other, With Family Smoking Status: Never smoker Alcohol: None Drugs: None Allergies/Adverse Reactions: Allergy/AdvReac Type Severity Reaction Status Date / Time bee venom protein (honey bee) Allergy Swelling Verified 05/26/18 09:54 Review of Systems Constitutional:: Reports: Fatigue. Denies: Fever, Sweats Cardiovascular:: Reports: Chest pain Respiratory: Reports: Shortness of breath at rest Gastrointestinal:: Denies: Abdominal pain, Nausea, Vomiting, Diarrhea, Constipation, Hematochezia Genitourinary: Denies: Dysuria, Hematuria, 15, Flank pain Musculoskeletal:: Denies: Back pain, Myalgia, Arthralgia Skin: Denies: Rash, Skin Changes, Wounds Neurological:: Denies: Headache, Dizziness, Visual changes, Tinnitus, Hearing loss Psychiatric: Denies: Anxiety, Depression, Homicidal Ideations, Suicidal Ideations Vital Signs Height 6 ft Weight: 115.666 kg Weight in Pounds 255.0 lbs Pulse Ox 95 Temperature 97.2 F Pulse Rate 62 Respiratory Rate 12 Blood Pressure 136/72 - Physical Exam General: Alert, Oriented x3, No apparent distress HEENT: Atraumatic, PERRLA, EOMI, Normocephalic Oropharynx:: Dry mucosa Neck:: Supple, Trachea midline. Negative for: JVD, bilateral Cardiac:: Regular rate, Regular rhythm, Normal S1, Normal S2. Negative for: Murmur Lungs: Clear to auscultation, Excusion symmetrical. Negative for: Rhonchi, Wheezes Abdomen:: Bowel sounds x 4, Soft, Non-tender, Non-distended. Negative for: Hepatosplenomegaly Extremities:: Negative for: Cyanosis, Edema Neurological: Neuro grossly intact Skin:: Negative for: Lesions, Rash, Petechiae, Ecchymosis Psychiatric:: Appropriate affect, Euthymic Lymphatics:: Negative for: Cervical lymphadenopathy, Supraclavicular lymphadenopathy, Axillary lymphadenopathy Laboratory Data: Laboratory Tests 05/26/18 05/26/18 05/26/18 Range/Units 10:18 10:18 10:18 WBC 7.2 (4.4-11.0) K/mm3 RBC 4.58 L (4.6-6.2) M/mm3 Hgb 13.7 (13.0-16.5) g/dl Hct 40.2 (40-54) % MCV 87.8 (80-94) fL MCH 29.9 (27.0-32.0) pg MCHC 34.1 (32-36) g/gl RDW 13.4 (11.6-14.6) % RDW Differential 42.8 (35.1-43.9) fl Plt Count 255 (150-450) K/mm3 MPV 8.6 (6.2-12.0) fl Immature Gran % (Auto) 0.100 (0.0-0.9) % Neut % (Auto) 65.7 (47-70) % Lymph % (Auto) 24.4 (19-41) % [place] % (Auto) 7.6 (0-10) % Eos % (Auto) 1.9 (0-5) % Baso % (Auto) 0.3 (0-1) % Absolute Neuts (auto) 4.8 (2.0-7.7) X10^3/uL Absolute Lymphs (auto) 1.77 (0.83-4.51) X10^3/ul Total Counted Not Reportable Sodium 138 (136-145) mmol/L Potassium 4.1 (3.5-5.1) mmol/L Chloride 107 (98-107) mmol/L Carbon Dioxide 24.0 (21.0-32.0) mmol/L Anion Gap 7 (5-15) BUN 18 (7-18) mg/dL Creatinine 1.14 (0.70-1.30) mg/dL Estim Creat Clear Calc 84.12 ml/min Est GFR (MDRD) Af Amer 85 (>60) mL/min Est GFR (MDRD) Non-Af 70 (>60) mL/min BUN/Creatinine Ratio 15.8 (10-20) RATIO Glucose 99 (74-106) mg/dL Calcium 8.6 (8.5-10.1) mg/dL Troponin I < 0.015 (<0.045) ng/mL B-Natriuretic Peptide 23.6 (0-100) pg/mL Laboratory Tests 04/18/18 22:45 Lupus Anticoag aPTT 37.5 Dil Bull Viper Venom 42.2 Protein C Antigen 88 Free Protein S 96 Total Protein S 117 Func Antithrombin III 96 Factor V Leiden Mutat negative Beta-2-GPI IgG Ab <9 Beta-2-GPI IgA Ab <9 Beta-2-GPI IgM Ab <9 Anti-Cardiolipin IgG Ab < 9 Anti-Cardiolipin IgM Ab 21 H Factor II DNA Analysis negative Diagnostic Data: Diagnostic Data Chest X-Ray 05/26/18 09:55 IMPRESSION: Increased markings at the lung bases suggestive of bibasilar atelectasis and/or early infiltrates. Follow-up is recommended. Electronically Signed: Arpan Graves, at 10:24 EDT , Service support , Chest CTA 05/26/18 10:26 IMPRESSION: Bilateral nonocclusive pulmonary emboli. Focal infiltrate in the superior segment of the left lower lobe as well as small left pleural effusion with underlying atelectasis and/or infiltrate. N.B. : The above information has been verbally conveyed by Arpan Graves to Barrera Ceja MD, on 05/26/2018 11:35:43 (ET). Electronically Signed: Arpan Graves, at 11:37 EDT , Service support , ADDENDUM: 05/26/18 1144 IMPRESSION: Bilateral nonocclusive pulmonary emboli. Focal infiltrate in the superior segment of the left lower lobe as well as small left pleural effusion with underlying atelectasis and/or infiltrate. N.B. : The above information has been verbally conveyed by Arpan Graves to Barrera Ceja MD, on 05/26/2018 11:35:43 (ET). Electronically Signed: Arpan Graves, at 11:37 EDT , Service support , Assessment and Plan Pulmonary Embolism while on Eliquis. History of DVT in Left lower extremity. Factor V Leiden and Prothrombin mutation negative. Positive Anti-cardiolipin Ig M positive. Lupus anticoagulant is negative. Pt may be refractory to Eliquis. Suggestions: To stop Eliquis and start Lovenox then switch to Coumadin. Repeat Doppler of the lower Extremities to assess for propagating DVT. Obtain CT abdomen and Pelvis to rule malignancy. Vascular Consult to determine if [place] Filter is needed. Anti-cardiolipin will need to be repeated in about 3 months. If stable on anticoagulation and discharged, should follow up in the [facility] for further management. Call if new problems arise. Medications: Medications Added to Medication List This Visit Category Date Time Status Acetaminophen [Tylenol] Med 05/26/18 13:19 Ordered 650 mg PO Q6H PRN PRN Magnesium Hydroxide [Milk Of Magnesia] Med 05/26/18 13:19 Ordered 30 ml PO DAILY PRN Ondansetron [Zofran] Med 05/26/18 13:19 Ordered 4 mg IV Q8H PRN PRN Oxycodone [Oxyir] Med 05/26/18 13:19 Ordered 5 mg PO Q4H PRN PRN Simvastatin Med 05/26/18 22:00 Ordered 40 mg PO QHS Primary Care Provider: Sharif Hernandez MD Referring Provider: Tacos Barcenas DO - Problem List (1) Anti-cardiolipin antibody positive Status: Chronic (2) Deep vein thrombosis (DVT) of left lower extremity Status: Chronic Qualifiers: Affected thrombotic vein of extremity: femoral (3) Bilateral pulmonary embolism Status: Acute Code Visit Office Visits / Consults: 93100 IP Consult L5
--- NOTE | 2018-05-26 13:41 | VDLE_ITS ---
Reason For Study: Pulmonary Embolism RIGHT LEFT GSV is normal. GSV is normal. CFV is compressible, spontaneous, phasic, CFV is compressible, spontaneous, phasic, competent and demonstrates normal competent, and demonstrates normal augmentation. augmentation. FV is compressible, spontaneous, phasic, Lt FV mid-distal, Lt PopV, Lt T/P Trunk, Lt competent and demonstrates normal GastrocV, Lt SoleusV, Lt PTV, and Lt PeroV augmentation. are dilated and non compressible consistent POP V is compressible, spontaneous, phasic, with acute DVT. competent and demonstrates normal augmentation. T/P Trunk is compressible. PTV is compressible. RT PerV is compressible. Procedure Exam performed portable in patient room. A preliminary report was called and/or faxed to Haritha TORREZ. Interpretation Summary There is no evidence of right lower extremity deep vein thrombosis. Right greater saphenous vein appears patent and compressible segmentally. Acute deep venous thrombosis left mid-distal femoral, popliteal, tibioperoneal trunk, gastrocnemius, soleus, posterior tibial and peroneal veins. Patent and compressible left great saphenous vein Ordering Physician: Tacos Barcenas Referring Physician: Sharif Hernandez Performed By: Danielle Florian RDCS, RVT
--- NOTE | 2018-05-26 13:44 | PCM.HP.STD ---
History of Present Illness Date of Admission: 05/26/18 Chief Complaint: chest pain The patient is a 57 year old M resents with chest pain today. Patient was found to have lateral nonocclusive pulmonary emboli. The emergency room physician contacted both hematology as well as vascular surgery. Patient had a DVT in his left lower extremity back in April and was started on Eliquis. Patient states that he has been compliant in taking the medication as instructed. He was a week and then had a left-sided chest pain today that elicited evaluation. Patient denies any history of venous thromboembolic disease. Prior to his DVT, he had no long distance travel with the exception of trip to the [facility] in early February. 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) Allergies bee venom protein (honey bee) Allergy (Verified 05/26/18 09:54) Swelling Home Medications: Ambulatory Orders Medication Instructions Recorded Simvastatin [Zocor] 40 mg PO QHS 07/30/17 Apixaban [Eliquis] 5 mg PO BID #74 tab 04/18/18 Surgical History: no surgical history Lives: Spouse/ Significant Other, With Family Smoking Status: Never smoker Drugs: None - *Family History Maternal History Items: - - No VT E Review of Systems Constitutional: Denies: Chills, Fever, Weight Change Eyes: Denies: Blurred vision, Double vision HEENT: Denies: Head Aches, Sinus Congestion, Sinus Drainage Cardiovascular: Reports: Chest Pain, Edema - Improved left lower extremity as compared to when he initially had a DVT Respiratory: Denies: Cough, Shortness of breath at rest, Sputum production Gastrointestinal: Denies: Abdominal Pain, Nausea, Vomiting Genitourinary: Denies: Dysuria Musculoskeletal: Denies: Joint Pain, Joint Tenderness Skin: Denies: Rash, Wounds Neurological: Denies: Numbness, Tingling, Focal weakness Psychiatric: Denies: Anxiety, Depression Hematologic/ Lymphatic: Denies: Easy Bruising, Easy Bleeding, Hx of blood clot VTE Information - Inpt Only VTE Present on Admission: Yes VTE Mechan Device Prophylaxis: None VTE Pharm Prophylaxis ordered?: No Reason prophylaxis not ordered:: Procedure Not Indicated Patient Problems: Active and Suspected Problems Bilateral pulmonary embolism (Acute) - Physical Exam General: Alert, No apparent distress HEENT: Atraumatic, Normocephalic Oral: Moist Mucosa, No Gingival or Mucosal Lesions/ Ulcerations Neck: No Nodes, Thyroid Normal Size and Texture Lungs: Clear to auscultation, Normal air movement, No rhonchi, No wheeze Cardiovascular: Regular rate, Regular Rhythm, Normal S1, Normal S2, No murmurs Abdomen: Bowel Sounds Present, Soft, Non Tender, Non-Distended, No Hepato-splenomegaly Extremities: No Calf Tenderness, Edema - And left lower extremity Skin: No rashes, No breakdown Musculoskeletal: No Tenderness to Palpation of Joints or Extremities, No Muscle Wasting Neurological: Muscle tone normal, Coordination normal Psych/Mental Status: Normal Affect, Appropriate Vital Signs Temp Pulse Resp BP Pulse Ox 36.7 C 79 18 139/78 H 95 05/26/18 13:33 05/26/18 13:33 05/26/18 13:33 05/26/18 13:33 05/26/18 13:33 Oxygen Delivery Method Room Air Weight: 115.666 kg Body Mass Index (BMI) 34.5 Laboratory Tests Past 24 Hrs 05/26/18 05/26/18 05/26/18 10:18 10:18 10:18 WBC 7.2 RBC 4.58 L Hgb 13.7 Hct 40.2 MCV 87.8 MCH 29.9 MCHC 34.1 RDW 13.4 RDW Differential 42.8 Plt Count 255 MPV 8.6 Immature Gran % (Auto) 0.100 Neut % (Auto) 65.7 Lymph % (Auto) 24.4 [place] % (Auto) 7.6 Eos % (Auto) 1.9 Baso % (Auto) 0.3 Absolute Neuts (auto) 4.8 Absolute Lymphs (auto) 1.77 Total Counted Not Reportable Sodium 138 Potassium 4.1 Chloride 107 Carbon Dioxide 24.0 Anion Gap 7 BUN 18 Creatinine 1.14 Estim Creat Clear Calc 84.12 Est GFR (MDRD) Af Amer 85 Est GFR (MDRD) Non-Af 70 BUN/Creatinine Ratio 15.8 Glucose 99 Calcium 8.6 Troponin I < 0.015 B-Natriuretic Peptide 23.6 Assessment/Plan All Active Problems History of hypercholesterolemia (Acute) Bilateral pulmonary embolism (Acute) 1. Bilateral pulmonary emboli Regular the patient's known DVT Concerned that this may be an Eliquis failure Already seen by hematology who recommended a duplex of the lower extremity see if there is been any further propagation. Patient's previous DVT was already in the femoral vein, plus to start on Lovenox and Coumadin. Will start the patient on Lovenox and warfarin today. Patient will need to continue with the Lovenox until his INR is greater than 2 for 24 hours. Vascular surgery on consultation to see about IVC filter. Currently there is no contraindication to anticoagulation. Code Visit OBSV E&M: 93786 Initial observation care L3
--- NOTE | 2018-05-26 13:46 | CON.PCM_ITS ---
Consult Referring Physician: Dr. Kevin Ceja/Dr. Maris Barcenas Consult Results: Pulmonary Embolism Subjective Date of Service:: 05/26/18 Chief Complaint: Asked to see pt for Pulmonary embolism while on Eliquis. History of Present Illness: 57y.o.man traveled to [place] by Plane in February 2018. In April 2018, developed pain in the Left leg, came to ER, found to have DVT in the left femoral, popliteal and posterior tibial veins. He was started on Eliquis onn 04/18/2018, reports that he is compliant. Yesterday, he developed SOB with chest pain which gets worse with deep breathing. Came to ER, CTA today 05/26/2018 shows Bilateral non occlusive PE. 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 - Social History Lives: Spouse/ Significant Other, With Family Smoking Status: Never smoker Alcohol: None Drugs: None Allergies/Adverse Reactions: Allergy/AdvReac Type Severity Reaction Status Date / Time bee venom protein (honey bee) Allergy Swelling Verified 05/26/18 09:54 Review of Systems Constitutional:: Reports: Fatigue. Denies: Fever, Sweats Cardiovascular:: Reports: Chest pain Respiratory: Reports: Shortness of breath at rest Gastrointestinal:: Denies: Abdominal pain, Nausea, Vomiting, Diarrhea, Constipation, Hematochezia Genitourinary: Denies: Dysuria, Hematuria, 15, Flank pain Musculoskeletal:: Denies: Back pain, Myalgia, Arthralgia Skin: Denies: Rash, Skin Changes, Wounds Neurological:: Denies: Headache, Dizziness, Visual changes, Tinnitus, Hearing loss Psychiatric: Denies: Anxiety, Depression, Homicidal Ideations, Suicidal Ideations Vital Signs Height 6 ft Weight: 115.666 kg Weight in Pounds 255.0 lbs Pulse Ox 95 Temperature 97.2 F Pulse Rate 62 Respiratory Rate 12 Blood Pressure 136/72 - Physical Exam General: Alert, Oriented x3, No apparent distress HEENT: Atraumatic, PERRLA, EOMI, Normocephalic Oropharynx:: Dry mucosa Neck:: Supple, Trachea midline. Negative for: JVD, bilateral Cardiac:: Regular rate, Regular rhythm, Normal S1, Normal S2. Negative for: Murmur Lungs: Clear to auscultation, Excusion symmetrical. Negative for: Rhonchi, Wheezes Abdomen:: Bowel sounds x 4, Soft, Non-tender, Non-distended. Negative for: Hepatosplenomegaly Extremities:: Negative for: Cyanosis, Edema Neurological: Neuro grossly intact Skin:: Negative for: Lesions, Rash, Petechiae, Ecchymosis Psychiatric:: Appropriate affect, Euthymic Lymphatics:: Negative for: Cervical lymphadenopathy, Supraclavicular lymphadenopathy, Axillary lymphadenopathy Laboratory Data: Laboratory Tests 05/26/18 05/26/18 05/26/18 Range/Units 10:18 10:18 10:18 WBC 7.2 (4.4-11.0) K/mm3 RBC 4.58 L (4.6-6.2) M/mm3 Hgb 13.7 (13.0-16.5) g/dl Hct 40.2 (40-54) % MCV 87.8 (80-94) fL MCH 29.9 (27.0-32.0) pg MCHC 34.1 (32-36) g/gl RDW 13.4 (11.6-14.6) % RDW Differential 42.8 (35.1-43.9) fl Plt Count 255 (150-450) K/mm3 MPV 8.6 (6.2-12.0) fl Immature Gran % (Auto) 0.100 (0.0-0.9) % Neut % (Auto) 65.7 (47-70) % Lymph % (Auto) 24.4 (19-41) % [place] % (Auto) 7.6 (0-10) % Eos % (Auto) 1.9 (0-5) % Baso % (Auto) 0.3 (0-1) % Absolute Neuts (auto) 4.8 (2.0-7.7) X10^3/uL Absolute Lymphs (auto) 1.77 (0.83-4.51) X10^3/ul Total Counted Not Reportable Sodium 138 (136-145) mmol/L Potassium 4.1 (3.5-5.1) mmol/L Chloride 107 (98-107) mmol/L Carbon Dioxide 24.0 (21.0-32.0) mmol/L Anion Gap 7 (5-15) BUN 18 (7-18) mg/dL Creatinine 1.14 (0.70-1.30) mg/dL Estim Creat Clear Calc 84.12 ml/min Est GFR (MDRD) Af Amer 85 (>60) mL/min Est GFR (MDRD) Non-Af 70 (>60) mL/min BUN/Creatinine Ratio 15.8 (10-20) RATIO Glucose 99 (74-106) mg/dL Calcium 8.6 (8.5-10.1) mg/dL Troponin I < 0.015 (<0.045) ng/mL B-Natriuretic Peptide 23.6 (0-100) pg/mL Laboratory Tests 04/18/18 22:45 Lupus Anticoag aPTT 37.5 Dil Bull Viper Venom 42.2 Protein C Antigen 88 Free Protein S 96 Total Protein S 117 Func Antithrombin III 96 Factor V Leiden Mutat negative Beta-2-GPI IgG Ab <9 Beta-2-GPI IgA Ab <9 Beta-2-GPI IgM Ab <9 Anti-Cardiolipin IgG Ab < 9 Anti-Cardiolipin IgM Ab 21 H Factor II DNA Analysis negative Diagnostic Data: Diagnostic Data Chest X-Ray 05/26/18 09:55 IMPRESSION: Increased markings at the lung bases suggestive of bibasilar atelectasis and/or early infiltrates. Follow-up is recommended. Electronically Signed: Arpan Graves, at 10:24 EDT , Service support , Chest CTA 05/26/18 10:26 IMPRESSION: Bilateral nonocclusive pulmonary emboli. Focal infiltrate in the superior segment of the left lower lobe as well as small left pleural effusion with underlying atelectasis and/or infiltrate. N.B. : The above information has been verbally conveyed by Arpan Graves to Barrera Ceja MD, on 05/26/2018 11:35:43 (ET). Electronically Signed: Arpan Graves, at 11:37 EDT , Service support , ADDENDUM: 05/26/18 1144 IMPRESSION: Bilateral nonocclusive pulmonary emboli. Focal infiltrate in the superior segment of the left lower lobe as well as small left pleural effusion with underlying atelectasis and/or infiltrate. N.B. : The above information has been verbally conveyed by Arpan Graves to Barrera Ceja MD, on 05/26/2018 11:35:43 (ET). Electronically Signed: Arpan Graves, at 11:37 EDT , Service support , Assessment and Plan Pulmonary Embolism while on Eliquis. History of DVT in Left lower extremity. Factor V Leiden and Prothrombin mutation negative. Positive Anti-cardiolipin Ig M positive. Lupus anticoagulant is negative. Pt may be refractory to Eliquis. Suggestions: To stop Eliquis and start Lovenox then switch to Coumadin. Repeat Doppler of the lower Extremities to assess for propagating DVT. Obtain CT abdomen and Pelvis to rule malignancy. Vascular Consult to determine if [place] Filter is needed. Anti-cardiolipin will need to be repeated in about 3 months. If stable on anticoagulation and discharged, should follow up in the [facility] for further management. Call if new problems arise. Medications: Medications Added to Medication List This Visit Category Date Time Status Acetaminophen [Tylenol] Med 05/26/18 13:19 Ordered 650 mg PO Q6H PRN PRN Magnesium Hydroxide [Milk Of Magnesia] Med 05/26/18 13:19 Ordered 30 ml PO DAILY PRN Ondansetron [Zofran] Med 05/26/18 13:19 Ordered 4 mg IV Q8H PRN PRN Oxycodone [Oxyir] Med 05/26/18 13:19 Ordered 5 mg PO Q4H PRN PRN Simvastatin Med 05/26/18 22:00 Ordered 40 mg PO QHS Primary Care Provider: Sharif Hernandez MD Referring Provider: Tacos Barcenas DO - Problem List (1) Anti-cardiolipin antibody positive Status: Chronic (2) Deep vein thrombosis (DVT) of left lower extremity Status: Chronic Qualifiers: Affected thrombotic vein of extremity: femoral (3) Bilateral pulmonary embolism Status: Acute Code Visit Office Visits / Consults: [id number] IP Consult L5
--- NOTE | 2018-05-26 13:49 | HP.PCM_ITS ---
History of Present Illness Date of Admission: 05/26/18 Chief Complaint: chest pain The patient is a 57 year old M resents with chest pain today. Patient was found to have lateral nonocclusive pulmonary emboli. The emergency room physician contacted both hematology as well as vascular surgery. Patient had a DVT in his left lower extremity back in April and was started on Eliquis. Patient states that he has been compliant in taking the medication as instructed. He was a week and then had a left-sided chest pain today that elicited evaluation. Patient denies any history of venous thromboembolic disease. Prior to his DVT, he had no long distance travel with the exception of trip to the [facility] in early February. 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) Allergies bee venom protein (honey bee) Allergy (Verified 05/26/18 09:54) Swelling Home Medications: Ambulatory Orders Medication Instructions Recorded Simvastatin [Zocor] 40 mg PO QHS 07/30/17 Apixaban [Eliquis] 5 mg PO BID #74 tab 04/18/18 Surgical History: no surgical history Lives: Spouse/ Significant Other, With Family Smoking Status: Never smoker Drugs: None - *Family History Maternal History Items: - - No VT E Review of Systems Constitutional: Denies: Chills, Fever, Weight Change Eyes: Denies: Blurred vision, Double vision HEENT: Denies: Head Aches, Sinus Congestion, Sinus Drainage Cardiovascular: Reports: Chest Pain, Edema - Improved left lower extremity as compared to when he initially had a DVT Respiratory: Denies: Cough, Shortness of breath at rest, Sputum production Gastrointestinal: Denies: Abdominal Pain, Nausea, Vomiting Genitourinary: Denies: Dysuria Musculoskeletal: Denies: Joint Pain, Joint Tenderness Skin: Denies: Rash, Wounds Neurological: Denies: Numbness, Tingling, Focal weakness Psychiatric: Denies: Anxiety, Depression Hematologic/ Lymphatic: Denies: Easy Bruising, Easy Bleeding, Hx of blood clot VTE Information - Inpt Only VTE Present on Admission: Yes VTE Mechan Device Prophylaxis: None VTE Pharm Prophylaxis ordered?: No Reason prophylaxis not ordered:: Procedure Not Indicated Patient Problems: Active and Suspected Problems Bilateral pulmonary embolism (Acute) - Physical Exam General: Alert, No apparent distress HEENT: Atraumatic, Normocephalic Oral: Moist Mucosa, No Gingival or Mucosal Lesions/ Ulcerations Neck: No Nodes, Thyroid Normal Size and Texture Lungs: Clear to auscultation, Normal air movement, No rhonchi, No wheeze Cardiovascular: Regular rate, Regular Rhythm, Normal S1, Normal S2, No murmurs Abdomen: Bowel Sounds Present, Soft, Non Tender, Non-Distended, No Hepato-s plenomegaly Extremities: No Calf Tenderness, Edema - And left lower extremity Skin: No rashes, No breakdown Musculoskeletal: No Tenderness to Palpation of Joints or Extremities, No Muscle Wasting Neurological: Muscle tone normal, Coordination normal Psych/Mental Status: Normal Affect, Appropriate Vital Signs Temp Pulse Resp BP Pulse Ox 36.7 C 79 18 139/78 H 95 05/26/18 13:33 05/26/18 13:33 05/26/18 13:33 05/26/18 13:33 05/26/18 13:33 Oxygen Delivery Method Room Air Weight: 115.666 kg Body Mass Index (BMI) 34.5 Laboratory Tests Past 24 Hrs 05/26/18 05/26/18 05/26/18 10:18 10:18 10:18 WBC 7.2 RBC 4.58 L Hgb 13.7 Hct 40.2 MCV 87.8 MCH 29.9 MCHC 34.1 RDW 13.4 RDW Differential 42.8 Plt Count 255 MPV 8.6 Immature Gran % (Auto) 0.100 Neut % (Auto) 65.7 Lymph % (Auto) 24.4 [place] % (Auto) 7.6 Eos % (Auto) 1.9 Baso % (Auto) 0.3 Absolute Neuts (auto) 4.8 Absolute Lymphs (auto) 1.77 Total Counted Not Reportable Sodium 138 Potassium 4.1 Chloride 107 Carbon Dioxide 24.0 Anion Gap 7 BUN 18 Creatinine 1.14 Estim Creat Clear Calc 84.12 Est GFR (MDRD) Af Amer 85 Est GFR (MDRD) Non-Af 70 BUN/Creatinine Ratio 15.8 Glucose 99 Calcium 8.6 Troponin I < 0.015 B-Natriuretic Peptide 23.6 Assessment/Plan All Active Problems History of hypercholesterolemia (Acute) Bilateral pulmonary embolism (Acute) 1. Bilateral pulmonary emboli * Regular the patient's known DVT * Concerned that this may be an Eliquis failure * Already seen by hematology who recommended a duplex of the lower extremity see if there is been any further propagation. Patient's previous DVT was already in the femoral vein, plus to start on Lovenox and Coumadin. * Will start the patient on Lovenox and warfarin today. Patient will need to continue with the Lovenox until his INR is greater than 2 for 24 hours. * Vascular surgery on consultation to see about IVC filter. Currently there is no contraindication to anticoagulation. Code Visit OBSV E&M: [id number] Initial observation care L3
--- NOTE | 2018-05-26 15:32 | CON.PCM_ITS ---
Problem List (1) Deep vein thrombosis (DVT) of left lower extremity Status: Chronic Qualifiers: Affected thrombotic vein of extremity: femoral Chronicity: acute Qualified Code(s): I82.412 - Acute embolism and thrombosis of left femoral vein (2) Bilateral pulmonary embolism Status: Acute Reason for Consult Date of Consultation: 05/26/18 History of Present Illness: The patient is a 57 year old M who has a history of a left lower extremity deep vein thrombosis diagnosed in April 2018. He was appropriately treated with Eliq uis. He is anticardiolipin positive. He presented to the emergency room with chest pain and evidence of bilateral pulmonary embolism. It is felt that he is possibly Eliquis resistant. He is clearly at high risk for DVT propagation and recurrent embolization. I was consulted by Dr. Ceja from the emergency room and I requested hematology consultation. It is felt appropriate to proceed with retrievable inferior vena cava filter placement while further adjusting anticoagulation options. At the present the patient is anticipated on starting Lovenox with conversion then to Coumadin. 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) Allergies bee venom protein (honey bee) Allergy (Verified 05/26/18 09:54) Swelling Home Medications: Ambulatory Orders Medication Instructions Recorded Simvastatin [Zocor] 40 mg PO QHS 07/30/17 Apixaban [Eliquis] 5 mg PO BID #74 tab 04/18/18 Surgical History: no surgical history Lives: Spouse/ Significant Other, With Family Smoking Status: Never smoker Alcohol: None Drugs: None - *Family History Maternal History Items: - - No VT E Review of Systems Constitutional: Denies: Anorexia Cardiovascular: Reports: Chest Pain Respiratory: Denies: Cough Gastrointestinal: Denies: Abdominal Pain Patient Problems: Active and Suspected Problems Bilateral pulmonary embolism (Acute) - Physical Exam General: Alert, Oriented x3, Cooperative, No apparent distress HEENT: Atraumatic Neck: Supple Lungs: Clear to auscultation Cardiovascular: Regular rate, Regular Rhythm Abdomen: Bowel Sounds Present Psych/Mental Status: Normal Affect Vital Signs Temp Pulse Resp BP Pulse Ox 98.1 F 92 18 139/78 H 95 05/26/18 13:33 05/26/18 14:08 05/26/18 13:33 05/26/18 13:33 05/26/18 13:33 Oxygen Delivery Method Room Air Weight: 255 lb Body Mass Index (BMI) 34.5 Laboratory Tests Past 24 Hrs 05/26/18 05/26/18 05/26/18 10:18 10:18 10:18 WBC 7.2 RBC 4.58 L Hgb 13.7 Hct 40.2 MCV 87.8 MCH 29.9 MCHC 34.1 RDW 13.4 RDW Differential 42.8 Plt Count 255 MPV 8.6 Immature Gran % (Auto) 0.100 Neut % (Auto) 65.7 Lymph % (Auto) 24.4 [place] % (Auto) 7.6 Eos % (Auto) 1.9 Baso % (Auto) 0.3 Absolute Neuts (auto) 4.8 Absolute Lymphs (auto) 1.77 Total Counted Not Reportable Sodium 138 Potassium 4.1 Chloride 107 Carbon Dioxide 24.0 Anion Gap 7 BUN 18 Creatinine 1.14 Estim Creat Clear Calc 84.12 Est GFR (MDRD) Af Amer 85 Est GFR (MDRD) Non-Af 70 BUN/Creatinine Ratio 15.8 Glucose 99 Calcium 8.6 Troponin I < 0.015 B-Natriuretic Peptide 23.6 Assessment/Plan All Active Problems History of hypercholesterolemia (Acute) Bilateral pulmonary embolism (Acute) I am recommending placement of a retrievable inferior vena cava [place] filter. In detail with the patient and family members present I have discussed the technique, benefits, risks, alternatives. Subsequent to that the patient can then undergo appropriate anticoagulation at this moment ostensibly with Lovenox and then Coumadin. Once it is assured that that program has been effective and I have instructed the patient we will proceed with filter retrieval. My concern is that the risk of a pulmonary embolism and if his new anticoagulation program is not effective would be higher than the risk of a temporary filter placement. I appreciate the opportunity of assisting with the surgical care Jame Parr M.D., F.A.C.S.
--- NOTE | 2018-05-26 15:35 | NURSING ---
verbal report given to LORE olea
--- NOTE | 2018-05-26 16:22 | PCM.OPRPT ---
Problem List (1) Deep vein thrombosis (DVT) of left lower extremity Status: Chronic Qualifiers: Affected thrombotic vein of extremity: femoral Chronicity: acute Qualified Code(s): I82.412 - Acute embolism and thrombosis of left femoral vein (2) Bilateral pulmonary embolism Status: Acute Report of Operation Date of Procedure: 05/26/18 Pre-Operative Diagnosis: Extensive left lower extremity deep vein thrombosis with bilateral pulmonary embolization despite anticoagulation Post-Operative Diagnosis: Same Surgery/Procedure Performed:: Inferior venacavogram with inferior vena cava [place] filter placement via right internal jugular approach Description of Surgical Findings:: Timeout and informed consent was obtained. 57-year-old gent was taken to special procedures lab placed on the table. The right neck was sterilely prepped and draped. Ultrasound was used to identify the right internal jugular vein. 2% lidocaine was used as a local anesthetic. A total of 10 cc was used. Under ultrasound guidance a micropuncture needle inserted in the right internal jugular vein followed by [place] wire advancement. This was exchanged out for a micropuncture sheath. An 035 J-wire was inserted. A 5 [place] short sheath was inserted. Then using an 035 J-wire a 5 [place] universal flush catheter was placed into the right common iliac vein. Using Isovue contrast the rate of 15 cc a second for 20 cc a inferior venacavogram was obtained. The inferior venacavogram demonstrated a widely patent right common iliac and inferior vena cava no evidence of thrombus. The vena cava was of appropriate dimension. The renal veins were felt to be at the L1 to interface. The 5 [place] sheath was removed as the flush catheter was removed and serial dilatation with a 9 [place] sheath was performed over the J-wire. Then the 8 [place] delivery sheath mechanism was inserted under fluoroscopic control. The dilator and wire were removed. The jugular approach [place] filter was inserted was deployed to the apex would be at L1-L2. There was absolutely perfect positioning with upright positioning no apparent complication. The delivery mechanism was removed. The sheath was removed. Pressure was held for hemostasis. Steri-Strip Telfa OpSite dressing applied. Blood loss was minimal he tolerated procedure well there is no apparent complication he was taken back to her recovery area in satisfactory condition. Images demonstrate widely patent inferior vena cava and right common iliac no evidence of thrombus. Origin radial veins were felt to be at L1-L2. Successful placement of the inferior vena cava [place] filter. Jame Parr M.D., F.A.C.S. Type of Anesthesia:: Local
--- NOTE | 2018-05-26 16:26 | OP.PCM_ITS ---
Problem List (1) Deep vein thrombosis (DVT) of left lower extremity Status: Chronic Qualifiers: Affected thrombotic vein of extremity: femoral Chronicity: acute Qualified Code(s): I82.412 - Acute embolism and thrombosis of left femoral vein (2) Bilateral pulmonary embolism Status: Acute Report of Operation Date of Procedure: 05/26/18 Pre-Operative Diagnosis: Extensive left lower extremity deep vein thrombosis with bilateral pulmonary embolization despite anticoagulation Post-Operative Diagnosis: Same Surgery/Procedure Performed:: Inferior venacavogram with inferior vena cava [place] filter placement via right internal jugular approach Description of Surgical Findings:: Timeout and informed consent was obtained. 57-year-old gent was taken to special procedures lab placed on the table. The right neck was sterilely prepped and draped. Ultrasound was used to identify the right internal jugular vein. 2% lidocaine was used as a local anesthetic. A total of 10 cc was used. Under ultrasound guidance a micropuncture needle inserted in the right internal jugular vein followed by [place]er wire advancement. This was exchanged out for a micropuncture sheath. An 035 J-wire was inserted. A 5 [place] short sheath was inserted. Then using an 035 J-wire a 5 [place] universal flush catheter was placed into the right common iliac vein. Using Isovue contrast the rate of 15 cc a second for 20 cc a inferior venacavogram was obtained. The inferior venac avogram demonstrated a widely patent right common iliac and inferior vena cava no evidence of thrombus. The vena cava was of appropriate dimension. The renal veins were felt to be at the L1 to interface. The 5 [place] sheath was removed as the flush catheter was removed and serial dilatation with a 9 [place] sheath was performed over the J-wire. Then the 8 [place] delivery sheath mechanism was inserted under fluoroscopic control. The dilator and wire were removed. The jugular approach [place] filter was inserted was deployed to the apex would be at L1-L2. There was absolutely perfect positi oning with upright positioning no apparent complication. The delivery mechanism was removed. The sheath was removed. Pressure was held for hemostasis. Steri- Strip Telfa OpSite dressing applied. Blood loss was minimal he tolerated procedure well there is no apparent complication he was taken back to her recovery area in satisfactory condition. Images demonstrate widely patent inferior vena cava and right common iliac no evidence of thrombus. Origin radial veins were felt to be at L1-L2. Successful placement of the inferior vena cava [place] filter. Jame Parr M.D., F.A.C.S. Type of Anesthesia:: Local
[2018-05-26] MEDS: Enoxaparin 120 MG/0.8 ML Syringe SC (17:01)
[2018-05-26] MEDS: Acetaminophen 325 MG Tablet 650 MG PO ×2 (17:01→23:01)
[2018-05-27 03:13] VITALS: PULSE 56
[2018-05-27 03:30] VITALS: BP 134/71; PULSE 61; RESP 16; TEMP 36.8; O2SAT 96
[2018-05-27] MEDS: Enoxaparin 120 MG/0.8 ML Syringe SC (05:07)
[2018-05-27 07:15] VITALS: PULSE 65
[2018-05-27 08:57] VITALS: BP 132/73; PULSE 82; RESP 17; TEMP 36.7; O2SAT 95
[2018-05-27] MEDS: Atorvastatin Calcium 20 MG Tablet PO (09:00)
--- NOTE | 2018-05-27 10:35 | CASEMGMT ---
Patient was interested in completing advance directives. SW me with patient, his , and son. Introduced self and role at [facility]. SW explained documents to patient. SW completed documents. Copies were made and given to patient along with originals. A copy of each were also placed in his chart. Zakiya SUN
[2018-05-27 11:03] VITALS: PULSE 73
--- NOTE | 2018-05-27 11:20 | PCM.DC ---
- Discharge Diagnoses Current Active Problems: Current Active and Chronic Problems Bilateral pulmonary embolism (Acute) Anti-cardiolipin antibody positive (Chronic) You will use the following diet at home:: No restrictions Call your doctor if you observe: Fever of 101 or Higher, Shortness of breath Allergies/Adverse Reactions: Allergies bee venom protein (honey bee) Allergy (Verified 05/26/18 09:54) Swelling Medications to take at Discharge Simvastatin [Zocor] 40 mg PO QHS 07/30/17 Acetaminophen [Tylenol Tablet] 650 mg PO Q6H PRN PRN tablet 05/27/18 Enoxaparin [Lovenox] 120 mg SC Q12@0600,1800 #14 syringe 05/27/18 Warfarin [Coumadin] 5 mg PO DAILY #30 tablet 05/27/18 The following prescriptions were given: Enoxaparin [Lovenox] 120 mg SC Q12@0600,1800 #14 syringe Warfarin [Coumadin] 5 mg PO DAILY #30 tablet Orders to be completed after discharge: Prothrombin Time w/INR Time Frame: 05/30/18, Location: Laboratory Primary Care Physician: Sharif Hernandez MD [Primary Care Provider] - Within 1 Week Test Results: Test results from this visit will be discussed in further detail at your follow-up appointment, if applicable. Please Follow Up With: Jame Parr MD When: 1-2 months Please Follow Up With: Justice Key MD When: 1-2 months Proposed Discharge Date: 05/27/18
--- NOTE | 2018-05-27 11:23 | DCINST_ITS ---
- Discharge Diagnoses Current Active Problems: Current Active and Chronic Problems Bilateral pulmonary embolism (Acute) Anti-cardiolipin antibody positive (Chronic) You will use the following diet at home:: No restrictions Call your doctor if you observe: Fever of 101 or Higher, Shortness of breath Allergies/Adverse Reactions: Allergies bee venom protein (honey bee) Allergy (Verified 05/26/18 09:54) Swelling Medications to take at Discharge Simvastatin [Zocor] 40 mg PO QHS 07/30/17 Acetaminophen [Tylenol Tablet] 650 mg PO Q6H PRN PRN tablet 05/27/18 Enoxaparin [Lovenox] 120 mg SC Q12@0600,1800 #14 syringe 05/27/18 Warfarin [Coumadin] 5 mg PO DAILY #30 tablet 05/27/18 The following prescriptions were given: Enoxaparin [Lovenox] 120 mg SC Q12@0600,1800 #14 syringe Warfarin [Coumadin] 5 mg PO DAILY #30 tablet Orders to be completed after discharge: Prothrombin Time w/INR Time Frame: 05/30/18, Location: Laboratory Primary Care Physician: Sharif Hernandez MD [Primary Care Provider] - Within 1 Week Test Results: Test results from this visit will be discussed in further detail at your follow- up appointment, if applicable. Please Follow Up With: Jame Parr MD When: 1-2 months Please Follow Up With: Justice Key MD When: 1-2 months Proposed Discharge Date: 05/27/18
--- NOTE | 2018-05-27 11:23 | PCM.DC.SUM ---
Discharge Date and Diagnosis - Problem List Patient Problems: Active and Suspected Problems Bilateral pulmonary embolism (Acute) Date of Admission: 05/26/18 Date of Discharge: 05/27/18 - Primary Discharge Diagnosis Active and Suspected Problems Bilateral pulmonary embolism (Acute) - Secondary Discharge Diagnosis Chronic Problems Deep vein thrombosis (DVT) of left lower extremity (Chronic) Anti-cardiolipin antibody positive (Chronic) Hospital Course and Treatment Imaging Results: Clinical Impression(s) from Imaging Studies Chest X-Ray 05/26/18 09:55 IMPRESSION: Increased markings at the lung bases suggestive of bibasilar atelectasis and/or early infiltrates. Follow-up is recommended. Electronically Signed: Arpan Graves, at 10:24 EDT , Service support , Chest CTA 05/26/18 10:26 IMPRESSION: Bilateral nonocclusive pulmonary emboli. Focal infiltrate in the superior segment of the left lower lobe as well as small left pleural effusion with underlying atelectasis and/or infiltrate. N.B. : The above information has been verbally conveyed by Arpan Graves to Barrera Ceja MD, on 05/26/2018 11:35:43 (ET). Electronically Signed: Arpan Graves, at 11:37 EDT , Service support , ADDENDUM: 05/26/18 1144 IMPRESSION: Bilateral nonocclusive pulmonary emboli. Focal infiltrate in the superior segment of the left lower lobe as well as small left pleural effusion with underlying atelectasis and/or infiltrate. N.B. : The above information has been verbally conveyed by Arpan Graves to Barrera Ceja MD, on 05/26/2018 11:35:43 (ET). Electronically Signed: Arpan Graves, at 11:37 EDT , Service support , Justice Key, Oncology Jame Parr Procedures: IVC filter placement Summary of Care Provided: The patient is a 57 year old M with acute pulmonary emboli. Patient presented with chest pain was found to have a bilateral pulmonary emboli. Patient had no clinical evidence of any right heart strain or was even requiring oxygen. Patient was already on Eliquis for known DVT in his left lower extremity. Patient was seen by hematology who advised the patient be switched over to Coumadin but to be bridged with Lovenox. The patient was also consulted with Dr. Parr of vascular who placed inferior vena cava filter. Patient tolerated the procedure well. Patient will have the filter removed in the coming months once he is been hemodynamically stable from his blood clots. Patient otherwise doing well and will be discharged home. Patient advised about dietary restrictions with Coumadin and explained that Coumadin monitoringis more frequent up over time front but will be scaled back as his INR becomes more stable. [] Patient Problems: Active and Suspected Problems Bilateral pulmonary embolism (Acute) - Physical Exam General: Alert, No apparent distress HEENT: Atraumatic, Normocephalic Oral: Moist Mucosa, No Gingival or Mucosal Lesions/ Ulcerations Neck: No Nodes, Thyroid Normal Size and Texture Lungs: Clear to auscultation, Normal air movement, No rhonchi, No wheeze Cardiovascular: Regular rate, Regular Rhythm, Normal S1, Normal S2 Vital Signs Temp Pulse Resp BP Pulse Ox 36.7 C 73 17 132/73 H 95 05/27/18 08:57 05/27/18 11:03 05/27/18 08:57 05/27/18 08:57 05/27/18 08:57 Oxygen Delivery Method Room Air Weight: 115.666 kg Body Mass Index (BMI) 34.5 Intake and Output for Last 24 Hours 05/25/18 05/26/18 05/27/18 23:59 23:59 23:59 Intake Total 1040 / 1040 240 / 240 Balance 1040 / 1040 240 / 240 Discharge Diet: No Restrictions Call your doctor if you observe: Fever of 101 or Higher, Shortness of breath Home Medications: Medications to take at Discharge Simvastatin [Zocor] 40 mg PO QHS 07/30/17 Acetaminophen [Tylenol Tablet] 650 mg PO Q6H PRN PRN tablet 05/27/18 Enoxaparin [Lovenox] 120 mg SC Q12@0600,1800 #14 syringe 05/27/18 Warfarin [Coumadin] 5 mg PO DAILY #30 tablet 05/27/18 Following Prescrptions Were Given to Patient: Enoxaparin [Lovenox] 120 mg SC Q12@0600,1800 #14 syringe Warfarin [Coumadin] 5 mg PO DAILY #30 tablet Other Amb Orders: Prothrombin Time w/INR Time Frame: 05/30/18, Location: Laboratory Primary Care Physician: Sharif Hernandez MD [Primary Care Provider] - Within 1 Week Please Follow Up With: Jame Parr MD When: 1-2 months Please Follow Up With: Justice Key MD When: 1-2 months Disposition: Home Minutes spent on discharge:: 32 Patient Condition:: Good Medical Necessity - Tobacco Use Smoking Status: Never smoker Meaningful Use Info Meaningful Use Diagnoses (Choose all that apply): VTE - VTE Anticoag overlap given w/in hospital stay or rx'd at dc?: Yes Pt receive overlap for 5 days?: Yes Code Visit OBSV E&M: 06037 Observation care discharge
--- NOTE | 2018-05-27 11:26 | DS.PCM_ITS ---
Discharge Date and Diagnosis - Problem List Patient Problems: Active and Suspected Problems Bilateral pulmonary embolism (Acute) Date of Admission: 05/26/18 Date of Discharge: 05/27/18 - Primary Discharge Diagnosis Active and Suspected Problems Bilateral pulmonary embolism (Acute) - Secondary Discharge Diagnosis Chronic Problems Deep vein thrombosis (DVT) of left lower extremity (Chronic) Anti-cardiolipin antibody positive (Chronic) Hospital Course and Treatment Imaging Results: Clinical Impression(s) from Imaging Studies Chest X-Ray 05/26/18 09:55 IMPRESSION: Increased markings at the lung bases suggestive of bibasilar atelectasis and/or early infiltrates. Follow-up is recommended. Electronically Signed: Arpan Graves, at 10:24 EDT , Service support , Chest CTA 05/26/18 10:26 IMPRESSION: Bilateral nonocclusive pulmonary emboli. Focal infiltrate in the superior segment of the left lower lobe as well as small left pleural effusion with underlying atelectasis and/or infiltrate. N.B. : The above information has been verbally conveyed by Arpan Graves to Barrera Ceja MD, on 05/26/2018 11:35:43 (ET). Electronically Signed: Arpan Graves, at 11:37 EDT , Service support , ADDENDUM: 05/26/18 1144 IMPRESSION: Bilateral nonocclusive pulmonary emboli. Focal infiltrate in the superior segment of the left lower lobe as well as small left pleural effusion with underlying atelectasis and/or infiltrate. N.B. : The above information has been verbally conveyed by Arpan Graves to Barrera Ceja MD, on 05/26/2018 11:35:43 (ET). Electronically Signed: Arpan Graves, at 11:37 EDT , Service support , Justice Key, Oncology Jame Parr Procedures: IVC filter placement Summary of Care Provided: The patient is a 57 year old M with acute pulmonary emboli. Patient presented with chest pain was found to have a bilateral pulmonary emboli. Patient had no clinical evidence of any right heart strain or was even requiring oxygen. Patient was already on Eliquis for known DVT in his left lower extremity. Benny sr was seen by hematology who advised the patient be switched over to Coumadin but to be bridged with Lovenox. The patient was also consulted with Dr. Parr of vascular who placed inferior vena cava filter. Patient tolerated the procedure well. Patient will have the filter removed in the coming months once he is been hemodynamically stable from his blood clots. Patient otherwise doing well and will be discharged home. Patient advised about dietary restrictions with Coumadin and explained that Coumadin monitoringis more frequent up over time front but will be scaled back as his INR becomes more stable. [] Patient Problems: Active and Suspected Problems Bilateral pulmonary embolism (Acute) - Physical Exam General: Alert, No apparent distress HEENT: Atraumatic, Normocephalic Oral: Moist Mucosa, No Gingival or Mucosal Lesions/ Ulcerations Neck: No Nodes, Thyroid Normal Size and Texture Lungs: Clear to auscultation, Normal air movement, No rhonchi, No wheeze Cardiovascular: Regular rate, Regular Rhythm, Normal S1, Normal S2 Vital Signs Temp Pulse Resp BP Pulse Ox 36.7 C 73 17 132/73 H 95 05/27/18 08:57 05/27/18 11:03 05/27/18 08:57 05/27/18 08:57 05/27/18 08:57 Oxygen Delivery Method Room Air Weight: 115.666 kg Body Mass Index (BMI) 34.5 Intake and Output for Last 24 Hours 05/25/18 05/26/18 05/27/18 23:59 23:59 23:59 Intake Total 1040 / 1040 240 / 240 Balance 1040 / 1040 240 / 240 Discharge Diet: No Restrictions Call your doctor if you observe: Fever of 101 or Higher, Shortness of breath Home Medications: Medications to take at Discharge Simvastatin [Zocor] 40 mg PO QHS 07/30/17 Acetaminophen [Tylenol Tablet] 650 mg PO Q6H PRN PRN tablet 05/27/18 Enoxaparin [Lovenox] 120 mg SC Q12@0600,1800 #14 syringe 05/27/18 Warfarin [Coumadin] 5 mg PO DAILY #30 tablet 05/27/18 Following Prescrptions Were Given to Patient: Enoxaparin [Lovenox] 120 mg SC Q12@0600,1800 #14 syringe Warfarin [Coumadin] 5 mg PO DAILY #30 tablet Other Amb Orders: Prothrombin Time w/INR Time Frame: 05/30/18, Location: Laboratory Primary Care Physician: Sharif Hernandez MD [Primary Care Provider] - Within 1 Week Please Follow Up With: Jame Parr MD When: 1-2 months Please Follow Up With: Justice Key MD When: 1-2 months Disposition: Home Minutes spent on discharge:: 32 Patient Condition:: Good Medical Necessity - Tobacco Use Smoking Status: Never smoker Meaningful Use Info Meaningful Use Diagnoses (Choose all that apply): VTE - VTE Anticoag overlap given w/in hospital stay or rx'd at dc?: Yes Pt receive overlap for 5 days?: Yes Code Visit OBSV E&M: 26745 Observation care discharge
== END 2018-05-27 12:30 | disposition home or self-care (01) | DRG 167 ==
LOC: ED 10:48 → PCU 12:41
PROVIDERS: Emergency Provider Emergency Medicine; Family Provider Family Medicine; PCP Family Medicine
DX: I26.99 Other pulmonary embolism without acute cor pulmonale (principal); I82.412 Acute embolism and thrombosis of left femoral vein; R76.0 Raised antibody titer; Z79.01 Long term (current) use of anticoagulants
CPT/HCPCS: 37191; 71045; 71275; 80048; 83880; 84484; 85025; 93005; 93970; 99285; Q9967; A4216; C1769; C1880

== ENCOUNTER → 2018-05-30 | Outpatient (CLI) | payer OTHER, SELFPAY ==
[2018-05-26 13:19] VITALS: BMI 34.5
[2018-05-30 09:49] LABS: International Normalized Ratio 1.4; Prothrombin Time (Protime)PT. 16.9 SECONDS (11.7-14.9)
== END | disposition home or self-care (01) ==
LOC: LAB 07:47
PROVIDERS: Family Provider Family Medicine; PCP Family Medicine
DX: Z79.01 Long term (current) use of anticoagulants (principal)
CPT/HCPCS: 36415; 85610

== ENCOUNTER 2018-06-01 07:00 | Emergency (ER) | payer OTHER, SELFPAY ==
[2018-05-26 13:19] VITALS: BMI 34.5
[2018-06-01 07:02] VITALS: BP 142/97; PULSE 62; RESP 17; TEMP 36.9; O2SAT 95; BMI 34.5
--- NOTE | 2018-06-01 07:18 | ED.VIS.GEN ---
History of Present Illness Chief Complaint: Ear Problem Informant: Patient, Family Onset: Today Timing: Continuous Quality: Bright red blood from right ear Location: Right external auditory canal Current Severity: Mild Maximum Severity: Moderate Worsened by: Patient presently on Coumadin and Lovenox Relieved by: Nothing Associated Symptoms: No other symptoms Narrative: Patient is a middle-age male who was recently seen for bilateral pulmonary embolus. He was diagnosed 6 weeks prior with extensive DVT left lower extremity. He was compliant with Eliquis. He developed a PE. He had a [place] filter placed. He is presently on Lovenox and Coumadin. His PT/INR was assessed 2 days ago and he was subtherapeutic. His dose was increased. He is scheduled for a repeat PT/INR later today. He denies trauma. He denies bleeding from any other site. Prior similar symptoms: No Recent Illness/Hospitalization: Yes - Past Medical History (1) Bilateral pulmonary embolism Status: Acute (2) History of hypercholesterolemia Status: Acute (3) Anti-cardiolipin antibody positive Status: Chronic (4) Deep vein thrombosis (DVT) of left lower extremity Status: Chronic Past Medical History - Allergies and Home Meds Allergies/Adverse Reactions: Allergies bee venom protein (honey bee) Allergy (Verified 06/01/18 07:00) Swelling Primary Care Physician: Sharif Hernandez MD [Primary Care Provider] - Prior records reviewed: Yes Surgical History: no surgical history, - - Placement [place] filter by Dr. Jame Parr Smoking Status: Never smoker Alcohol: Rare Drugs: None - Family History Maternal Family History: Reports: - - No VT E Review of Systems General: Denies: Chills, Fever, Sweats Eyes: Denies: Visual changes - bilaterally, Blurred Vision - bilaterally, Diplopia ENT: Reports: - - Bright red blood ear canal right side. Denies: Bilateral ear pain, Rhinorrhea, Sore throat Cardiovascular: Denies: Chest pain, Palpitations Respiratory: Denies: Dyspnea, Sputum, Dyspnea on exertion Hematologic: Reports: Easy bleeding. Denies: Easy bruising Physical Exam Vital Signs/Narrative: Vital Signs Temp Pulse Resp BP Pulse Ox 06/01/18 07:02 98.5 F 62 17 142/97 H 95 Inital Vital Signs reviewed: Yes General: Well nourished, Well developed, Obese, No Acute Distress Head: Normocephalic, Atraumatic Eyes: Perrl, EOMI. Negative for: Pale conjunctiva, Scleral icterus, - ENT: Moist mucous membranes, No rhinorrhea, TM's clear, - - Patient has bleeding inferior wall external auditory canal. No other abnormality noted. Neck: Supple, Nontender, No lymphadenopathy, No JVD, - Cardiovascular: Regular rate, Regular rhythm, No murmurs, Normal S1, Normal S2 Respiratory: No distress, CTA bilaterally, Chest nontender Skin: Normal color, No rash Neurological: Alert, Oriented x3, Cranial nerves II-XII grossly intact, Normal Strength, Normal Sensation Psychological: Normal affect Diagnostic/Tx/Re-eval - Medical Decision Making Patient with spontaneous bleeding right external auditory canal. He presents because he blood throughout the night. His PT/INR was subtherapeutic. Since the dose was increased less than 48 hours ago PT/INR was not obtained. Of note there is no bruising or ecchymosis noted torso or extremity. And he is not bleeding from any other sites. Bleeding site was identified. Gelfoam was placed. Plan is to observe for 30 minutes. If no further bleeding, plan is to discharge home. Patient was reassessed at 055. Gelfoam remains in place. Clot has formed. There is no evidence of active bleeding at this time. Plan is to discharge to home and follow-up with Dr. Petar Mueller who patient is seen in the past. He was instructed to call for an appointment in 5 days. ED Disposition - Plan for ED Patient: Disposition: Home or Assisted Living Diagnosis: Bleeding external auditory canal right, Bleeding on Coumadin Instructions: Taking?Coumadin Referrals: Sharif Hernandez MD [Primary Care Provider] - Keep Evan appointment Petar Gonzales MD [STAFF PHYSICIAN] - 5-7 Days
[2018-06-01 09:08] VITALS: PULSE 64; RESP 17; O2SAT 97
== END 2018-06-01 09:11 | disposition home or self-care (01) ==
PROVIDERS: Emergency Provider Emergency Medicine; Family Provider Family Medicine; PCP Family Medicine
DX: H92.21 Otorrhagia, right ear (principal); Z79.01 Long term (current) use of anticoagulants; E66.9 Obesity, unspecified; E78.00 Pure hypercholesterolemia, unspecified; D68.61 Antiphospholipid syndrome; Z86.711 Personal history of pulmonary embolism; Z86.718 Personal history of other venous thrombosis and embolism; Z95.828 Presence of other vascular implants and grafts; Z79.899 Other long term (current) drug therapy
CPT/HCPCS: 99283

== ENCOUNTER → 2018-09-28 | Outpatient (CLI) | payer OTHER, SELFPAY ==
[2018-08-24 14:19] VITALS: BMI 34.2
[2018-08-30 07:46] VITALS: BMI 34.2
--- NOTE | 2018-09-28 13:40 | VDLE_ITS ---
Reason For Study: DVT check RIGHT LEFT GSV is normal. CFV is compressible, spontaneous, phasic, CFV is compressible, spontaneous, phasic, competent, and demonstrates normal competent and demonstrates normal augmentation. augmentation. Prox FV is compressible. FV is compressible, spontaneous, phasic, Mid - distal FV, Pop V, T/P Trunk, PTV, competent and demonstrates normal Peroneal V, and Gastroc V are partially augmentation. compressible. POP V is compressible, spontaneous, phasic, Soleus V is compressible. competent and demonstrates normal Improvement from previous study done augmentation. 05/26/2018. T/P Trunk is compressible. Heterogeneous area noted in the groin PTV is compressible. measuring .88 x 3.1 cm in short. RT PerV is compressible. Procedure Exam performed in department. The exam was diagnostic. Interpretation Summary There is no evidence of right lower extremity deep vein thrombosis. Right great saphenous vein appears patent and compressible segmentally. Deep venous thrombosis left distal femoral, popliteal, tibioperoneal trunk, posterior tibial, peroneal and gastrocnemius veins with improvement noted since 05/26/18. Patent and compressible left great saphenous vein Left groin 3.1 x 0.88 cm mass consistent with a lymph node--clinical correlation would be appropriate. Ordering Physician: Justice Key Performed By: Christiano Valverde RVT
== END | disposition home or self-care (01) ==
LOC: CVS 13:39
PROVIDERS: Family Provider Family Medicine; PCP Family Medicine; Referring Provider Internal Medicine Medical Oncology; Visit Provider Internal Medicine Medical Oncology
DX: I26.99 Other pulmonary embolism without acute cor pulmonale (principal); I82.402 Acute embolism and thrombosis of unspecified deep veins of left lower extremity; R76.0 Raised antibody titer
CPT/HCPCS: 93970

== ENCOUNTER → 2018-10-18 07:04 | Outpatient (CLI) | payer OTHER, SELFPAY ==
[2018-10-05 14:23] VITALS: BMI 33.7
--- NOTE | 2018-10-18 07:05 | CT_ITS ---
STUDY: CT ABDOMEN AND PELVIS WITH CONTRAST REASON FOR EXAM: Male, 58 years old. Lymph nodes in the left groin. RADIATION DOSAGE (If Supplied By Facility): CTDIvol = ( 20.14 ) mGy, DLP = ( 1407.24 ) mGycm TECHNIQUE: Transaxial images were obtained from the dome of the diaphragm to the symphysis pubis with oral contrast. 100mL IV/Oral Isovue 300 was administered. Sagittal and coronal images were reconstructed. Individualized dose optimization techniques were used for this CT. COMPARISON: Comparison is made with prior study dated July 30, 2017. FINDINGS: The visualized lung bases are unremarkable. The visualized portions of the heart are within normal limits. There is decreased attenuation of the liver consistent with steatosis. Stable hepatomegaly. There are multiple small gallstones. Normal spleen. Normal pancreas. Normal bilateral adrenal glands. Normal right kidney. Normal left kidney. There is a small hiatal hernia. Normal small intestine. There are multiple colonic diverticula consistent with diverticulosis. The appendix is visualized and appears normal. There is scattered atherosclerotic calcification of the abdominal aorta, without a demonstrated aneurysm. There is an IVC filter in place. Normal retroperitoneum. Normal urinary bladder. There are several small benign-appearing lymph nodes in both inguinal regions. Normal abdominal wall. The space narrowing at the L5-S1 level. CT/Abdomen/Pelvis WITH Contrast IMPRESSION: Mild hepatomegaly with fatty infiltration of the liver. Small bilateral inguinal lymph nodes. Electronically Signed: Arpan Graves, at 14:13 EDT , Service support ,
== END ==
PROVIDERS: Family Provider Family Medicine; PCP Family Medicine; Referring Provider Internal Medicine Medical Oncology; Visit Provider Internal Medicine Medical Oncology
DX: R59.0 Localized enlarged lymph nodes (principal)
CPT/HCPCS: 74177; Q9967

== ENCOUNTER 2018-11-17 05:24 | Day surgery (SDC) | payer OTHER, SELFPAY ==
[2018-11-02 09:09] VITALS: BMI 34.3
--- NOTE | 2018-11-02 09:13 | HP_ITS ---
Intake Vital Signs 11/02/18 Body Mass Index (BMI) 34.3 11/02/18 Height 6 ft 11/02/18 Weight: 245 lb 1 oz 11/02/18 Body Mass Index (BMI) 33.2 11/02/18 Blood Pressure 148/75 H 11/02/18 Blood Pressure Location Rt brachial 11/02/18 Blood Pressure Position Sitting 11/02/18 Respiratory Rate 20 H 11/02/18 Pulse Rate 67 11/02/18 Pulse Ox 97 Intake Visit Reasons: enlarged LN and IVC filter removal Chief Complaint: discuss filter and colonoscopy Steel Burner Required: No Is patient in pain?: No Allergies bee venom protein (honey bee) Allergy (Verified 11/02/18 08:58) Swelling Medications Acetaminophen [Tylenol Tablet] 650 mg PO Q6H PRN PRN tab 05/27/18 [Rx Confirmed 11/02/18] fenofibrate nanocrystallized 145 mg tablet 145 mg PO DAILY 08/30/18 [History Confirmed 11/02/18] rosuvastatin 5 mg tablet 5 mg PO DAILY 08/30/18 [History Confirmed 11/02/18] PFSH Medical History Presence of vena cava filter (Acute) History of hypercholesterolemia (Acute) Deep vein thrombosis (DVT) of left lower extremity (Chronic) Bilateral pulmonary embolism (Acute) Anti-cardiolipin antibody positive (Chronic) Hooper filter in place (Acute) History of deviated nasal septum (Acute) Surgical History History of nasal surgery (Acute) History of tonsillectomy (Acute) history amari filter insertion (Acute) Family History Father Diabetes Mother Diabetes Heart disease High cholesterol Uncle Colon cancer Social History (Updated 11/02/18 @ 09:13 by Jame Parr MD) Smoking Status: Never smoker alcohol intake: never substance use type: does not use HPI HPI HPI: FLAKITO BALDWIN is a 58 M who presents to the office today for HPI HPI Surgical H&P: Yes HPI: FLAKITO BALDWIN is a 58 M who presents to the office today for ongoing surgical consultation regarding 2 separate issues today. One is for a colonoscopy. The patient has had a previous history of colon polyps. April 11, 2015 I performed a colonoscopy for him. There was a 10 mm polyp in the distal sigmoid colon that I resected with hot snare and then placed hemostatic clips. There was a 4 mm polyp in the rectum. Diverticulosis was identified. The distal sigmoid polyp was tubulovillous adenoma with focal high-grade dysplasia. The cauterized edge was free of adenomatous change. The rectal polyp was hyperplastic. I recommended follow-up colonoscopy at 3 years and the patient is now returning. Secondarily the patient was previously seen in August to consider vena cava filter removal. Venous duplex imaging of his legs demonstrated improvement. He has been seen by Dr. Justice Key and is felt to be cleared for filter removal. CT scan as noted below demonstrated some mild nonspecific groin adenopathy. Intake Visit Reasons: Remove Amari Filter Chief Complaint: Follow up for thromboembolism. Steel Burner Required: No Is patient in pain?: No Allergies bee venom protein (honey bee) Allergy (Verified 08/30/18 07:44) Swelling Medications Acetaminophen [Tylenol Tablet] 650 mg PO Q6H PRN PRN tab 05/27/18 [Rx Confirmed 08/30/18] fenofibrate nanocrystallized 145 mg tablet 145 mg PO DAILY 08/30/18 [History Confirmed 08/30/18] rosuvastatin 5 mg tablet 5 mg PO DAILY 08/30/18 [History Confirmed 08/30/18] [facility] Medical History (Updated 08/30/18 @ 07:55 by Jame Parr MD) Presence of vena cava filter (Acute) History of hypercholesterolemia (Acute) Deep vein thrombosis (DVT) of left lower extremity (Chronic) Bilateral pulmonary embolism (Acute) Anti-cardiolipin antibody positive (Chronic) Amari filter in place (Acute) History of deviated nasal septum (Acute) Surgical History (Updated 08/30/18 @ 07:43 by Nancy Trotter) History of nasal surgery (Acute) History of tonsillectomy (Acute) history amari filter insertion (Acute) Family History (Updated 08/30/18 @ 07:43 by Nancy Trotter) Father Diabetes Mother Diabetes Heart disease High cholesterol Uncle Colon cancer Social History (Updated 08/30/18 @ 07:57 by Jame Parr MD) Smoking Status: Never smoker alcohol intake: never substance use type: does not use HPI: FLAKITO BALDWIN, is a 58 M who presents to the office today for surgical consultation regarding an inferior vena cava filter. The patient is managed by Dr. Key. Venous duplex imaging and coagulation laboratory ordered for October 07, 2018. On May 26, 2018 because of a nonocclusive pulmonary embolus despite anticoagulation I placed a [place] filter. He was initiated on Lovenox and to change to Coumadin. He currently has no complaints. No leg pain. He has been intermittently wearing his support hose. He is being referred for consideration of removal of the filter. HPI HPI HPI: FLAKITO BALDWIN, is a 58 M who presents to the office today for ROS General General: No weight change, appetite, fatigue, colon cancer, breast cancer or weakness HEENT HEENT: No difficulty swallowing, eye injury, eye surgery, swollen glands or hoarseness Endo Endocrine: No thyroid disease, diabetes mellitus, thyroid cancer, Hair loss, heat intolerance or cold intolerance Skin Skin: No rash or changing moles Breast Breast: No left breast lump, right breast lump, nipple discharge, breast pain, abnormal mammogram, abnormal US or breast enlargement Musc Musculoskeletal: No back problems, arthritis, rheumatoid arthritis, gout or joint pain Cardio Cardiovascular: No murmur, pacemaker, heart disease, atrial fibrillation, high blood pressure, heart attack, heart stent, palpitations, shortness of breat with exertion or chest pain Psych Psychiatric: No depression, anxiety or hearing voices Resp Respiratory: No shortness of breath, No sleep apnea, No cough, No COPD, No asthma, No emphysema, No wheezing Gastro Gastrointestinal: No abdominal pain, No nausea or vomiting, No diarrhea, No constipation, No blood in stool, No acid reflux, No hemorrhoids, No ulcers, No gallbladder problem, No black,tarry stools Mariano Hematologic: Yes blood thinners, No blood disorders, No bleeding, No anemia, Yes blood clots Neuro Neurologic: No system reviewed and no additional complaints, except as docu, No as per HPI, No abnormal walking, No abnormal hearing, No abnormal movements, No abnormal speech, No behavioral changes, No burning sensations, No confusion, No seizure-like activity, No unsteadiness, No dizziness, No localized weakness, No frequent falls, No headache(s), No lack of coordination, No loss of vision, No memory loss, No numbness, No other visual disturbances, No radiating pain, No restless legs, No sensory deficit, No fainting, No tingling, No tremor(s), No weakness, No other Exam Const General: cooperative, healthy appearing, comfortable, no acute distress Nutritional Appearance: overweight HENMT Head: normal to inspection Neck Other: Supple, nontender, well-healed stab incision right neck at introduction site for the filter Chest Breast Palpation: No nipple discharge Resp Effort & Inspection: normal respiratory effort Auscultation: clear to auscultation bilaterally Cardio Rate: regular rate Rhythm: regular rhythm Heart Sounds: no murmurs GI Palpation: soft Neuro Cognition: normal cognition Assessment & Plan Problems 1. Presence of vena cava filter Z95.828 Plan I have discussed with him technique, benefit, risks and alternatives to removal of his inferior vena cava filter. He has venous imaging and laboratory scheduled for October 07. If the venous duplex scan is unremarkable and laboratory does not demonstrate some type of significant coagulopathy then I will have him scheduled in October for removal of the filter. He is aware that I should be able to achieve this via a right internal jugular approach but it could require more extensive intervention including a groin approach. He has had an opportunity to ask and have questions answered. He is aware that there are no guarantees as of successful filter removal. We will schedule and proceed as noted. I appreciate the ongoing opportunity of assisting with his surgical care. CC: Dr. Key and Dr. Mary Parr M.D., F.A.C.S. Medications New: rosuvastatin 5 mg PO DAILY fenofibrate nanocrystallized 145 mg PO DAILY Coding Level of Care Code Off vis,est,level 2 Diagnoses Presence of vena cava filter [facility] [address] [place] [address] Abdomen/Pelvis WITH Contrast MR#: [id number] Name: FLAKITO BALDWIN [facility] #:[id number] : 1960M 58 From: Arpan Graves MD PCP:Mary JAMES,Sharif Status:REG CLI Study:Abdomen/Pelvis WITH Contrast Date of Exam:10/18/18 Exam#[id number] Ordering Dr: Justice Key MD STUDY: CT ABDOMEN AND PELVIS WITH CONTRAST REASON FOR EXAM: Male, 58 years old. Lymph nodes in the left groin. RADIATION DOSAGE (If Supplied By Facility): CTDIvol = ( 20.14 ) mGy, DLP = ( 1407.24 ) mGycm TECHNIQUE: Transaxial images were obtained from the dome of the diaphragm to the symphysis pubis with oral contrast. 100mL IV/Oral Isovue 300 was administered. Sagittal and coronal images were reconstructed. Individualized dose optimization techniques were used for this CT. COMPARISON: Comparison is made with prior study dated July 30, 2017. FINDINGS: The visualized lung bases are unremarkable. The visualized portions of the heart are within normal limits. There is decreased attenuation of the liver consistent with steatosis. Stable hepatomegaly. There are multiple small gallstones. Normal spleen. Normal pancreas. Normal bilateral adrenal glands. Normal right kidney. Normal left kidney. There is a small hiatal hernia. Normal small intestine. There are multiple colonic diverticula consistent with diverticulosis. The appendix is visualized and appears normal. There is scattered atherosclerotic calcification of the abdominal aorta, without a demonstrated aneurysm. There is an IVC filter in place. Normal retroperitoneum. Normal urinary bladder. There are several small benign-appearing lymph nodes in both inguinal regions. Normal abdominal wall. The space narrowing at the L5-S1 level. CT/Abdomen/Pelvis WITH Contrast IMPRESSION: Mild hepatomegaly with fatty infiltration of the liver. Small bilateral inguinal lymph nodes. Electronically Signed: Arpan Graves, at 14:13 EDT , Service support , ROS General General: No weight change, appetite, fatigue, colon cancer, breast cancer or weakness HEENT HEENT: No difficulty swallowing, eye injury, eye surgery, swollen glands or hoarseness Endo Endocrine: No thyroid disease, diabetes mellitus, thyroid cancer, Hair loss, heat intolerance or cold intolerance Skin Skin: No rash or changing moles Breast Breast: No left breast lump, right breast lump, nipple discharge, breast pain, abnormal mammogram, abnormal US or breast enlargement Musc Musculoskeletal: No back problems, arthritis, rheumatoid arthritis, gout or joint pain Cardio Cardiovascular: No murmur, pacemaker, heart disease, atrial fibrillation, high blood pressure, heart attack, heart stent, palpitations, shortness of breat with exertion or chest pain Psych Psychiatric: No depression, anxiety or hearing voices Resp Respiratory: No shortness of breath, No sleep apnea, No cough, No COPD, No asthma, No emphysema, No wheezing Gastro Gastrointestinal: No abdominal pain, No nausea or vomiting, No diarrhea, No constipation, No blood in stool, No acid reflux, No hemorrhoids, No ulcers, No gallbladder problem, No black,tarry stools Mariano Hematologic: Yes blood thinners, No blood disorders, No bleeding, No anemia, Yes blood clots Neuro Neurologic: No weakness Exam Const General: cooperative, healthy appearing, comfortable, no acute distress HENMT Other: Recent excision left quaker basal cell carcinoma by Dr. Aj Morley dermatology Chest Chest palpation & inspection: normal inspection of the chest Breast Palpation: No nipple discharge Resp Effort & Inspection: normal respiratory effort Auscultation: clear to auscultation bilaterally Cardio Rate: regular rate Rhythm: regular rhythm Heart Sounds: no murmurs GI Palpation: soft, no hepatosplenomegaly Auscultation: normal bowel sounds Extrem General: no calf tenderness bilaterally Psych Affect: normal affect Assessment & Plan Problems 1. Personal history of colonic polyps Z86.010 2. Presence of vena cava filter Z95.828 Plan I recommend the patient a colonoscopy with possible biopsy or polypectomy as indicated. He is aware of the technique, benefits, risks and alternatives. He has had an opportunity to ask and have questions answered. He well-tolerated a previous procedure performed April 2015 under IV sedation. I then recommended the patient a right internal jugular approach for removal of his vena cava filter. In addition I have discussed technique, benefits, risks and alternatives. He also has had an opportunity to ask and have questions answered. We will schedule the filter removal subsequent to the colonoscopy. CC: Dr. Justice Key and Dr. Sharif Parr M.D., F.A.C.S. Coding Level of Care Code Off vis,est,level 2 Diagnoses Personal history of colonic polyps Z86.010 Presence of vena cava filter Z95.828 09/26/19 0913 <Electronically signed by Jame herbert MD> Date _ Jame Parr MD
[2018-11-17] VITALS (7 sets, daily range): BP systolic 105–156; BP diastolic 68–93; PULSE 55–87; RESP 16; TEMP 36.1–36.6; O2SAT 94–98; BMI 31.6
[2018-11-17] MEDS: Lactated Ringers 1,000 ML 100 ML IV (06:08)
--- NOTE | 2018-11-17 06:18 | PCM.HP.BLA ---
Problem List (1) Personal history of colonic polyps Status: Acute History and Physical Date of Admission: 11/17/18 Intake Visit Reasons: enlarged LN and IVC filter removal Chief Complaint: discuss filter and colonoscopy Director Business Integration Required: No Is patient in pain?: No Allergies bee venom protein (honey bee) Allergy (Verified 11/02/18 08:58) Swelling Medications Acetaminophen [Tylenol Tablet] 650 mg PO Q6H PRN PRN tab 05/27/18 [Rx Confirmed 11/02/18] fenofibrate nanocrystallized 145 mg tablet 145 mg PO DAILY 08/30/18 [History Confirmed 11/02/18] rosuvastatin 5 mg tablet 5 mg PO DAILY 08/30/18 [History Confirmed 11/02/18] PFS Medical History Presence of vena cava filter (Acute) History of hypercholesterolemia (Acute) Deep vein thrombosis (DVT) of left lower extremity (Chronic) Bilateral pulmonary embolism (Acute) Anti-cardiolipin antibody positive (Chronic) Herrin filter in place (Acute) History of deviated nasal septum (Acute) Surgical History History of nasal surgery (Acute) History of tonsillectomy (Acute) history amari filter insertion (Acute) Family History Father Diabetes Mother Diabetes Heart disease High cholesterol Uncle Colon cancer Social History (Updated 11/02/18 @ 09:13 by Jame Parr MD) Smoking Status: Never smoker alcohol intake: never substance use type: does not use HPI HPI HPI: FLAKITO BALDWIN is a 58 M who presents to the office today for HPI HPI Surgical H&P: Yes HPI: FLAKITO BALDWIN is a 58 M who presents to the office today for ongoing surgical consultation regarding 2 separate issues today. One is for a colonoscopy. The patient has had a previous history of colon polyps. April 11, 2015 I performed a colonoscopy for him. There was a 10 mm polyp in the distal sigmoid colon that I resected with hot snare and then placed hemostatic clips. There was a 4 mm polyp in the rectum. Diverticulosis was identified. The distal sigmoid polyp was tubulovillous adenoma with focal high-grade dysplasia. The cauterized edge was free of adenomatous change. The rectal polyp was hyperplastic. I recommended follow-up colonoscopy at 3 years and the patient is now returning. Secondarily the patient was previously seen in August to consider vena cava filter removal. Venous duplex imaging of his legs demonstrated improvement. He has been seen by Dr. Justice Key and is felt to be cleared for filter removal. CT scan as noted below demonstrated some mild nonspecific groin adenopathy. Intake Visit Reasons: Remove Herrin Filter Chief Complaint: Follow up for thromboembolism. Director Business Integration Required: No Is patient in pain?: No Allergies bee venom protein (honey bee) Allergy (Verified 08/30/18 07:44) Swelling Medications Acetaminophen [Tylenol Tablet] 650 mg PO Q6H PRN PRN tab 05/27/18 [Rx Confirmed 08/30/18] fenofibrate nanocrystallized 145 mg tablet 145 mg PO DAILY 08/30/18 [History Confirmed 08/30/18] rosuvastatin 5 mg tablet 5 mg PO DAILY 08/30/18 [History Confirmed 08/30/18] [facility] Medical History (Updated 08/30/18 @ 07:55 by Jame Parr MD) Presence of vena cava filter (Acute) History of hypercholesterolemia (Acute) Deep vein thrombosis (DVT) of left lower extremity (Chronic) Bilateral pulmonary embolism (Acute) Anti-cardiolipin antibody positive (Chronic) Maari filter in place (Acute) History of deviated nasal septum (Acute) Surgical History (Updated 08/30/18 @ 07:43 by Nancy Trotter) History of nasal surgery (Acute) History of tonsillectomy (Acute) history amari filter insertion (Acute) Family History (Updated 08/30/18 @ 07:43 by Nancy Trotter) Father Diabetes Mother Diabetes Heart disease High cholesterol Uncle Colon cancer Social History (Updated 08/30/18 @ 07:57 by Jame Parr MD) Smoking Status: Never smoker alcohol intake: never substance use type: does not use HPI: FLAKITO BALDWIN, is a 58 M who presents to the office today for surgical consultation regarding an inferior vena cava filter. The patient is managed by Dr. Key. Venous duplex imaging and coagulation laboratory ordered for October 07, 2018. On May 26, 2018 because of a nonocclusive pulmonary embolus despite anticoagulation I placed a [place] filter. He was initiated on Lovenox and to change to Coumadin. He currently has no complaints. No leg pain. He has been intermittently wearing his support hose. He is being referred for consideration of removal of the filter. HPI HPI HPI: FLAKITO BALDWIN, is a 58 M who presents to the office today for ROS General General: No weight change, appetite, fatigue, colon cancer, breast cancer or weakness HEENT HEENT: No difficulty swallowing, eye injury, eye surgery, swollen glands or hoarseness Endo Endocrine: No thyroid disease, diabetes mellitus, thyroid cancer, Hair loss, heat intolerance or cold intolerance Skin Skin: No rash or changing moles Breast Breast: No left breast lump, right breast lump, nipple discharge, breast pain, abnormal mammogram, abnormal US or breast enlargement Musc Musculoskeletal: No back problems, arthritis, rheumatoid arthritis, gout or joint pain Cardio Cardiovascular: No murmur, pacemaker, heart disease, atrial fibrillation, high blood pressure, heart attack, heart stent, palpitations, shortness of breat with exertion or chest pain Psych Psychiatric: No depression, anxiety or hearing voices Resp Respiratory: No shortness of breath, No sleep apnea, No cough, No COPD, No asthma, No emphysema, No wheezing Gastro Gastrointestinal: No abdominal pain, No nausea or vomiting, No diarrhea, No constipation, No blood in stool, No acid reflux, No hemorrhoids, No ulcers, No gallbladder problem, No black,tarry stools Mariano Hematologic: Yes blood thinners, No blood disorders, No bleeding, No anemia, Yes blood clots Neuro Neurologic: No system reviewed and no additional complaints, except as docu, No as per HPI, No abnormal walking, No abnormal hearing, No abnormal movements, No abnormal speech, No behavioral changes, No burning sensations, No confusion, No seizure-like activity, No unsteadiness, No dizziness, No localized weakness, No frequent falls, No headache(s), No lack of coordination, No loss of vision, No memory loss, No numbness, No other visual disturbances, No radiating pain, No restless legs, No sensory deficit, No fainting, No tingling, No tremor(s), No weakness, No other Exam Const General: cooperative, healthy appearing, comfortable, no acute distress Nutritional Appearance: overweight HENMT Head: normal to inspection Neck Other: Supple, nontender, well-healed stab incision right neck at introduction site for the filter Chest Breast Palpation: No nipple discharge Resp Effort & Inspection: normal respiratory effort Auscultation: clear to auscultation bilaterally Cardio Rate: regular rate Rhythm: regular rhythm Heart Sounds: no murmurs GI Palpation: soft Neuro Cognition: normal cognition Assessment & Plan Problems 1. Presence of vena cava filter Z95.828 Plan I have discussed with him technique, benefit, risks and alternatives to removal of his inferior vena cava filter. He has venous imaging and laboratory scheduled for October 07. If the venous duplex scan is unremarkable and laboratory does not demonstrate some type of significant coagulopathy then I will have him scheduled in October for removal of the filter. He is aware that I should be able to achieve this via a right internal jugular approach but it could require more extensive intervention including a groin approach. He has had an opportunity to ask and have questions answered. He is aware that there are no guarantees as of successful filter removal. We will schedule and proceed as noted. I appreciate the ongoing opportunity of assisting with his surgical care. CC: Dr. Key and Dr. Mary Parr M.D., F.A.C.S. Medications New: rosuvastatin 5 mg PO DAILY fenofibrate nanocrystallized 145 mg PO DAILY Coding Level of Care Code Off vis,est,level 2 Diagnoses Presence of vena cava filter [facility] [address] [place] [address] Abdomen/Pelvis WITH Contrast MR#: [id number]:[id number] Name: FLAKITO BALDWIN #:[id number] : 1960M 58 From: Arpan Graves MD PCP:Mary JAMES,Sharif Status:REG CLI Study:Abdomen/Pelvis WITH Contrast Date of Exam:10/18/18 Exam#[id number] Ordering Dr: Justice Key MD STUDY: CT ABDOMEN AND PELVIS WITH CONTRAST REASON FOR EXAM: Male, 58 years old. Lymph nodes in the left groin. RADIATION DOSAGE (If Supplied By Facility): CTDIvol = ( 20.14 ) mGy, DLP = ( 1407.24 ) mGycm TECHNIQUE: Transaxial images were obtained from the dome of the diaphragm to the symphysis pubis with oral contrast. 100mL IV/Oral Isovue 300 was administered. Sagittal and coronal images were reconstructed. Individualized dose optimization techniques were used for this CT. COMPARISON: Comparison is made with prior study dated July 30, 2017. FINDINGS: The visualized lung bases are unremarkable. The visualized portions of the heart are within normal limits. There is decreased attenuation of the liver consistent with steatosis. Stable hepatomegaly. There are multiple small gallstones. Normal spleen. Normal pancreas. Normal bilateral adrenal glands. Normal right kidney. Normal left kidney. There is a small hiatal hernia. Normal small intestine. There are multiple colonic diverticula consistent with diverticulosis. The appendix is visualized and appears normal. There is scattered atherosclerotic calcification of the abdominal aorta, without a demonstrated aneurysm. There is an IVC filter in place. Normal retroperitoneum. Normal urinary bladder. There are several small benign-appearing lymph nodes in both inguinal regions. Normal abdominal wall. The space narrowing at the L5-S1 level. CT/Abdomen/Pelvis WITH Contrast IMPRESSION: Mild hepatomegaly with fatty infiltration of the liver. Small bilateral inguinal lymph nodes. Electronically Signed: Arpan Graves, at 14:13 EDT , Service support , ROS General General: No weight change, appetite, fatigue, colon cancer, breast cancer or weakness HEENT HEENT: No difficulty swallowing, eye injury, eye surgery, swollen glands or hoarseness Endo Endocrine: No thyroid disease, diabetes mellitus, thyroid cancer, Hair loss, heat intolerance or cold intolerance Skin Skin: No rash or changing moles Breast Breast: No left breast lump, right breast lump, nipple discharge, breast pain, abnormal mammogram, abnormal US or breast enlargement Musc Musculoskeletal: No back problems, arthritis, rheumatoid arthritis, gout or joint pain Cardio Cardiovascular: No murmur, pacemaker, heart disease, atrial fibrillation, high blood pressure, heart attack, heart stent, palpitations, shortness of breat with exertion or chest pain Psych Psychiatric: No depression, anxiety or hearing voices Resp Respiratory: No shortness of breath, No sleep apnea, No cough, No COPD, No asthma, No emphysema, No wheezing Gastro Gastrointestinal: No abdominal pain, No nausea or vomiting, No diarrhea, No constipation, No blood in stool, No acid reflux, No hemorrhoids, No ulcers, No gallbladder problem, No black,tarry stools Mariano Hematologic: Yes blood thinners, No blood disorders, No bleeding, No anemia, Yes blood clots Neuro Neurologic: No weakness Exam Const General: cooperative, healthy appearing, comfortable, no acute distress [facility] Other: Recent excision [facility] christian basal cell [facility] Chest Chest palpation & inspection: normal inspection of the chest Breast Palpation: No nipple discharge Resp Effort & Inspection: normal respiratory effort Auscultation: clear to auscultation bilaterally Cardio Rate: regular rate Rhythm: regular rhythm Heart Sounds: no murmurs GI Palpation: soft, no hepatosplenomegaly Auscultation: normal bowel sounds Extrem General: no calf tenderness bilaterally Psych Affect: normal affect Assessment & Plan Problems 1. Personal history of colonic polyps Z86.010 2. Presence of vena cava filter Z95.828 Plan I recommend the patient a colonoscopy with possible biopsy or polypectomy as indicated. He is aware of the technique, benefits, risks and alternatives. He has had an opportunity to ask and have questions answered. He well-tolerated a previous procedure performed April 2015 under IV sedation. I then recommended the patient a right internal jugular approach for removal of his vena cava filter. In addition I have discussed technique, benefits, risks and alternatives. He also has had an opportunity to ask and have questions answered. We will schedule the filter removal subsequent to the colonoscopy. CC: Dr. Justice Key and Dr. Sharif Parr M.D., F.A.C.S. Coding Level of Care Code Off vis,est,level 2 Diagnoses Personal history of colonic polyps Z86.010 Presence of vena cava filter Z95.828 I have re-examined the patient. There are no clinical changes since date of exam.
--- NOTE | 2018-11-17 06:30 | COLBX_PTH ---
PATIENT: FLAKITO BALDWIN LOC: [facility] U#:[id number] AGE/SX: 58/M ROOM: RE11/17/[address]: Dr. Jame Parr MD : 1960 BED: DIS: 11/17/2018 SPEC #: [id number] RECD: 11/17/18 09:09 STATUS: MICHELL BENTLEY #: [id number] HUMA: 11/17/18 06:[address]: Jame Parr DEPT: SURGICAL PATHOLOGY RECD BY: Antonio Bennett ENTERED: 11/17/18 10:27 SP TYPE: COLON BX OT DR: Dr. Sharif Hernandez MD Tissues: A - Cecum, NOS B - Sigmoid colon biopsy Procedures: Surgery Specimen Level IV HEADER OPERATION: Colonoscopy (MOD) PRE-OP DIAGNOSIS: Personal history colonic polyps TISSUE SUBMITTED: A - Cecal polyp biopsy, B - Distal sigmoid polyp biopsy MICROSCOPIC DIAGNOSIS A. Cecal polyp, biopsy: A fragment of small intestinal mucosa, no pathologic diagnosis. B. Distal sigmoid polyp, biopsy: Hyperplastic polyp. SJ:asa 11/20/18 MICROSCOPIC DESCRIPTION Slides are reviewed. GROSS DESCRIPTION A - Received in fixative is one container labeled with the patient's name and designated cecal polyp biopsy. The specimen consists of one irregular fragment of light rodarte soft tissue that measures 0.3 x 0.3 x 0.1 cm. The specimen is totally submitted in one cassette. B -Received in fixative is one container labeled with the patient's name and designated distal sigmoid polyp. The specimen consists of one irregular fragment of light rodarte soft tissue that measures 0.6 x 0.3 x 0.1 cm. The specimen is totally submitted in one cassette. / AM:asa 11/17/18 TC:1 CPT: 83503 x2
--- NOTE | 2018-11-17 07:10 | OP.ENDO_ITS ---
11/17/2018 Sharif Hernandez [address] [place] [address] Re : Colonoscopy procedure for Nash Vazquez Dear Dr. Hernandez This procedure was performed on Saturday, November 17, 2018. My impressions and recommendations are as follows: Impressions : - One 10 mm polyp in the cecum, removed with a cold biopsy forceps. Incomplete resection. Resected tissue retrieved. - One 3 mm polyp in the distal sigmoid colon, removed with a cold biopsy forceps. Resected and retrieved. - Diverticulosis in the sigmoid colon and in the descending colon. Recommendations : - Discharge patient to home. - Resume previous diet. - Continue present medications. - Repeat colonoscopy in 1 year for surveillance based on pathology results. - Return to my office in 1 week. The polypoid lesion in the cecum behind the ileocecal valve could not be consistently imaged to adequately biopsy or remove. Will consider treatment options pending biopsy pathology. My findings are described in the full procedure note, which is enclosed. If I can be of further assistance, please feel free to contact me at Doctor phone number(s): Work: . Sincerely, Jame Parr MD 11/17/2018 7:09:29 AM This report has been signed electronically.
== END 2018-11-17 08:00 | disposition home or self-care (01) ==
LOC: EN 05:25 → AC 05:26 → ACINP 09:14
PROVIDERS: Family Provider Family Medicine; PCP Family Medicine; Referring Provider Family Medicine; Visit Provider Surgery
PROC: 0DJD8ZZ Inspection of Lower Intestinal Tract, Via Natural or Artificial Opening Endoscopic (ICD-10-PCS; CPT 45378; principal; 2018-11-17 06:25)
DX: K63.5 Polyp of colon (principal); K57.30 Diverticulosis of large intestine without perforation or abscess without bleeding; Z86.010 Personal history of colon polyps; E78.00 Pure hypercholesterolemia, unspecified; K76.0 Fatty (change of) liver, not elsewhere classified; Z86.718 Personal history of other venous thrombosis and embolism; Z86.711 Personal history of pulmonary embolism; Z95.828 Presence of other vascular implants and grafts; Z79.01 Long term (current) use of anticoagulants
CPT/HCPCS: 45380; 88305; 99152; 99153; J7120

== ENCOUNTER 2018-11-30 09:23 | Day surgery (SDC) | payer OTHER, SELFPAY ==
[2018-11-02 09:09] VITALS: BMI 34.3
--- NOTE | 2018-11-02 09:13 | HP_ITS ---
Intake Vital Signs 11/02/18 Body Mass Index (BMI) 34.3 11/02/18 Height 6 ft 11/02/18 Weight: 245 lb 1 oz 11/02/18 Body Mass Index (BMI) 33.2 11/02/18 Blood Pressure 148/75 H 11/02/18 Blood Pressure Location Rt brachial 11/02/18 Blood Pressure Position Sitting 11/02/18 Respiratory Rate 20 H 11/02/18 Pulse Rate 67 11/02/18 Pulse Ox 97 Intake Visit Reasons: enlarged LN and IVC filter removal Chief Complaint: discuss filter and colonoscopy Equipment Analyst Required: No Is patient in pain?: No Allergies bee venom protein (honey bee) Allergy (Verified 11/02/18 08:58) Swelling Medications Acetaminophen [Tylenol Tablet] 650 mg PO Q6H PRN PRN tab 05/27/18 [Rx Confirmed 11/02/18] fenofibrate nanocrystallized 145 mg tablet 145 mg PO DAILY 08/30/18 [History Confirmed 11/02/18] rosuvastatin 5 mg tablet 5 mg PO DAILY 08/30/18 [History Confirmed 11/02/18] PFSH Medical History Presence of vena cava filter (Acute) History of hypercholesterolemia (Acute) Deep vein thrombosis (DVT) of left lower extremity (Chronic) Bilateral pulmonary embolism (Acute) Anti-cardiolipin antibody positive (Chronic) [place] filter in place (Acute) History of deviated nasal septum (Acute) Surgical History History of nasal surgery (Acute) History of tonsillectomy (Acute) history amari filter insertion (Acute) Family History Father Diabetes Mother Diabetes Heart disease High cholesterol Uncle Colon cancer Social History (Updated 11/02/18 @ 09:13 by Jame Parr MD) Smoking Status: Never smoker alcohol intake: never substance use type: does not use HPI HPI HPI: FLAKITO BALDWIN is a 58 M who presents to the office today for HPI HPI Surgical H&P: Yes HPI: FLAKITO BALDWIN is a 58 M who presents to the office today for ongoing surgical consultation regarding 2 separate issues today. One is for a colonoscopy. The patient has had a previous history of colon polyps. April 11, 2015 I performed a colonoscopy for him. There was a 10 mm polyp in the distal sigmoid colon that I resected with hot snare and then placed hemostatic clips. There was a 4 mm polyp in the rectum. Diverticulosis was identified. The distal sigmoid polyp was tubulovillous adenoma with focal high-grade dysplasia. The cauterized edge was free of adenomatous change. The rectal polyp was hyperplastic. I recommended follow-up colonoscopy at 3 years and the patient is now returning. Secondarily the patient was previously seen in August to consider vena cava filter removal. Venous duplex imaging of his legs demonstrated improvement. He has been seen by Dr. Justice Key and is felt to be cleared for filter removal. CT scan as noted below demonstrated some mild nonspecific groin adenopathy. Intake Visit Reasons: Remove Amari Filter Chief Complaint: Follow up for thromboembolism. Equipment Analyst Required: No Is patient in pain?: No Allergies bee venom protein (honey bee) Allergy (Verified 08/30/18 07:44) Swelling Medications Acetaminophen [Tylenol Tablet] 650 mg PO Q6H PRN PRN tab 05/27/18 [Rx Confirmed 08/30/18] fenofibrate nanocrystallized 145 mg tablet 145 mg PO DAILY 08/30/18 [History Confirmed 08/30/18] rosuvastatin 5 mg tablet 5 mg PO DAILY 08/30/18 [History Confirmed 08/30/18] [facility] Medical History (Updated 08/30/18 @ 07:55 by Jame Parr MD) Presence of vena cava filter (Acute) History of hypercholesterolemia (Acute) Deep vein thrombosis (DVT) of left lower extremity (Chronic) Bilateral pulmonary embolism (Acute) Anti-cardiolipin antibody positive (Chronic) Amari filter in place (Acute) History of deviated nasal septum (Acute) Surgical History (Updated 08/30/18 @ 07:43 by Nancy Trotter) History of nasal surgery (Acute) History of tonsillectomy (Acute) history amari filter insertion (Acute) Family History (Updated 08/30/18 @ 07:43 by Nancy Trotter) Father Diabetes Mother Diabetes Heart disease High cholesterol Uncle Colon cancer Social History (Updated 08/30/18 @ 07:57 by Jame Parr MD) Smoking Status: Never smoker alcohol intake: never substance use type: does not use HPI: FLAKITO BALDWIN, is a 58 M who presents to the office today for surgical consultation regarding an inferior vena cava filter. The patient is managed by Dr. Key. Venous duplex imaging and coagulation laboratory ordered for October 07, 2018. On May 26, 2018 because of a nonocclusive pulmonary embolus despite anticoagulation I placed a [place] filter. He was initiated on Lovenox and to change to Coumadin. He currently has no complaints. No leg pain. He has been intermittently wearing his support hose. He is being referred for consideration of removal of the filter. HPI HPI HPI: FLAKITO BALDWIN, is a 58 M who presents to the office today for ROS General General: No weight change, appetite, fatigue, colon cancer, breast cancer or weakness HEENT HEENT: No difficulty swallowing, eye injury, eye surgery, swollen glands or hoarseness Endo Endocrine: No thyroid disease, diabetes mellitus, thyroid cancer, Hair loss, heat intolerance or cold intolerance Skin Skin: No rash or changing moles Breast Breast: No left breast lump, right breast lump, nipple discharge, breast pain, abnormal mammogram, abnormal US or breast enlargement Musc Musculoskeletal: No back problems, arthritis, rheumatoid arthritis, gout or joint pain Cardio Cardiovascular: No murmur, pacemaker, heart disease, atrial fibrillation, high blood pressure, heart attack, heart stent, palpitations, shortness of breat with exertion or chest pain Psych Psychiatric: No depression, anxiety or hearing voices Resp Respiratory: No shortness of breath, No sleep apnea, No cough, No COPD, No asthma, No emphysema, No wheezing Gastro Gastrointestinal: No abdominal pain, No nausea or vomiting, No diarrhea, No constipation, No blood in stool, No acid reflux, No hemorrhoids, No ulcers, No gallbladder problem, No black,tarry stools Mariano Hematologic: Yes blood thinners, No blood disorders, No bleeding, No anemia, Yes blood clots Neuro Neurologic: No system reviewed and no additional complaints, except as docu, No as per HPI, No abnormal walking, No abnormal hearing, No abnormal movements, No abnormal speech, No behavioral changes, No burning sensations, No confusion, No seizure-like activity, No unsteadiness, No dizziness, No localized weakness, No frequent falls, No headache(s), No lack of coordination, No loss of vision, No memory loss, No numbness, No other visual disturbances, No radiating pain, No restless legs, No sensory deficit, No fainting, No tingling, No tremor(s), No weakness, No other Exam Const General: cooperative, healthy appearing, comfortable, no acute distress Nutritional Appearance: overweight HENMT Head: normal to inspection Neck Other: Supple, nontender, well-healed stab incision right neck at introduction site for the filter Chest Breast Palpation: No nipple discharge Resp Effort & Inspection: normal respiratory effort Auscultation: clear to auscultation bilaterally Cardio Rate: regular rate Rhythm: regular rhythm Heart Sounds: no murmurs GI Palpation: soft Neuro Cognition: normal cognition Assessment & Plan Problems 1. Presence of vena cava filter Z95.828 Plan I have discussed with him technique, benefit, risks and alternatives to removal of his inferior vena cava filter. He has venous imaging and laboratory scheduled for October 07. If the venous duplex scan is unremarkable and laboratory does not demonstrate some type of significant coagulopathy then I will have him scheduled in October for removal of the filter. He is aware that I should be able to achieve this via a right internal jugular approach but it could require more extensive intervention including a groin approach. He has had an opportunity to ask and have questions answered. He is aware that there are no guarantees as of successful filter removal. We will schedule and proceed as noted. I appreciate the ongoing opportunity of assisting with his surgical care. CC: Dr. Key and Dr. Mary Parr M.D., F.A.C.S. Medications New: rosuvastatin 5 mg PO DAILY fenofibrate nanocrystallized 145 mg PO DAILY Coding Level of Care Code Off vis,est,level 2 Diagnoses Presence of vena cava filter [facility] [address] [place] [address] Abdomen/Pelvis WITH Contrast MR#: [id number] Name: FLAKITO BALDWIN [facility] #:[id number] : 1960M 58 From: Arpan Graves MD PCP:Mary JAMES,Sharif Status:REG CLI Study:Abdomen/Pelvis WITH Contrast Date of Exam:10/18/18 Exam#[id number] Ordering Dr: Justice Key MD STUDY: CT ABDOMEN AND PELVIS WITH CONTRAST REASON FOR EXAM: Male, 58 years old. Lymph nodes in the left groin. RADIATION DOSAGE (If Supplied By Facility): CTDIvol = ( 20.14 ) mGy, DLP = ( 1407.24 ) mGycm TECHNIQUE: Transaxial images were obtained from the dome of the diaphragm to the symphysis pubis with oral contrast. 100mL IV/Oral Isovue 300 was administered. Sagittal and coronal images were reconstructed. Individualized dose optimization techniques were used for this CT. COMPARISON: Comparison is made with prior study dated July 30, 2017. FINDINGS: The visualized lung bases are unremarkable. The visualized portions of the heart are within normal limits. There is decreased attenuation of the liver consistent with steatosis. Stable hepatomegaly. There are multiple small gallstones. Normal spleen. Normal pancreas. Normal bilateral adrenal glands. Normal right kidney. Normal left kidney. There is a small hiatal hernia. Normal small intestine. There are multiple colonic diverticula consistent with diverticulosis. The appendix is visualized and appears normal. There is scattered atherosclerotic calcification of the abdominal aorta, without a demonstrated aneurysm. There is an IVC filter in place. Normal retroperitoneum. Normal urinary bladder. There are several small benign-appearing lymph nodes in both inguinal regions. Normal abdominal wall. The space narrowing at the L5-S1 level. CT/Abdomen/Pelvis WITH Contrast IMPRESSION: Mild hepatomegaly with fatty infiltration of the liver. Small bilateral inguinal lymph nodes. Electronically Signed: Arpan Graves, at 14:13 EDT , Service support , ROS General General: No weight change, appetite, fatigue, colon cancer, breast cancer or weakness HEENT HEENT: No difficulty swallowing, eye injury, eye surgery, swollen glands or hoarseness Endo Endocrine: No thyroid disease, diabetes mellitus, thyroid cancer, Hair loss, heat intolerance or cold intolerance Skin Skin: No rash or changing moles Breast Breast: No left breast lump, right breast lump, nipple discharge, breast pain, abnormal mammogram, abnormal US or breast enlargement Musc Musculoskeletal: No back problems, arthritis, rheumatoid arthritis, gout or joint pain Cardio Cardiovascular: No murmur, pacemaker, heart disease, atrial fibrillation, high blood pressure, heart attack, heart stent, palpitations, shortness of breat with exertion or chest pain Psych Psychiatric: No depression, anxiety or hearing voices Resp Respiratory: No shortness of breath, No sleep apnea, No cough, No COPD, No asthma, No emphysema, No wheezing Gastro Gastrointestinal: No abdominal pain, No nausea or vomiting, No diarrhea, No constipation, No blood in stool, No acid reflux, No hemorrhoids, No ulcers, No gallbladder problem, No black,tarry stools Mariano Hematologic: Yes blood thinners, No blood disorders, No bleeding, No anemia, Yes blood clots Neuro Neurologic: No weakness Exam Const General: cooperative, healthy appearing, comfortable, no acute distress HENMT Other: Recent excision left druze basal cell carcinoma by Dr. Aj Morley dermatology Chest Chest palpation & inspection: normal inspection of the chest Breast Palpation: No nipple discharge Resp Effort & Inspection: normal respiratory effort Auscultation: clear to auscultation bilaterally Cardio Rate: regular rate Rhythm: regular rhythm Heart Sounds: no murmurs GI Palpation: soft, no hepatosplenomegaly Auscultation: normal bowel sounds Extrem General: no calf tenderness bilaterally Psych Affect: normal affect Assessment & Plan Problems 1. Personal history of colonic polyps Z86.010 2. Presence of vena cava filter Z95.828 Plan I recommend the patient a colonoscopy with possible biopsy or polypectomy as indicated. He is aware of the technique, benefits, risks and alternatives. He has had an opportunity to ask and have questions answered. He well-tolerated a previous procedure performed April 2015 under IV sedation. I then recommended the patient a right internal jugular approach for removal of his vena cava filter. In addition I have discussed technique, benefits, risks and alternatives. He also has had an opportunity to ask and have questions answered. We will schedule the filter removal subsequent to the colonoscopy. CC: Dr. Justice Key and Dr. Sharif Parr M.D., F.A.C.S. Coding Level of Care Code Off vis,est,level 2 Diagnoses Personal history of colonic polyps Z86.010 Presence of vena cava filter Z95.828 09/26/19 0913 <Electronically signed by Jame herbert MD> Date _ Jame Parr MD
[2018-11-24 07:44] VITALS: BMI 33.2
[2018-11-24 08:18] LABS: Hematocrit 42.1 % (40-54); Hemoglobin 13.9 g/dL (13.0-16.5); Mean Corpuscular Hgb 29.6 pg (27.0-32.0); Mean Corpuscular Volume 89.8 fL (80-94); Mean Platelet Vol. 8.8 fl (6.2-12.0); Platelet Count 234 K/mm3 (150-450); RBC Distribution Width CV 12.2 % (11.6-14.6); RBC Distribution Width SD 40.1 fl (35.1-43.9); Red Blood Count 4.69 M/mm3 (4.6-6.2); White Blood Count 7.6 K/mm3 (4.4-11.0)
[2018-11-24 08:32] LABS: Anion Gap 6 (5-15); BUN 19 mg/dL (7-18); BUN/Creat Ratio 16.4 RATIO (10-20); Calcium,Total 8.5 mg/dL (8.5-10.1); Chloride 107 mmol/L (98-107); Creatinine, Serum 1.16 mg/dL (0.70-1.30); EST Glomerular Filtration Rate 69 mL/min (>60); Est Glom Filt Rate - Afr Amer 83 mL/min (>60); Glucose 100 mg/dL (74-106); Potassium 4.4 mmol/L (3.5-5.1); Sodium Level 139 mmol/L (136-145)
--- NOTE | 2018-11-30 10:37 | PCM.HP.BLA ---
Problem List (1) Presence of vena cava filter Status: Acute History and Physical Date of Admission: 11/30/18 Intake Visit Reasons: enlarged LN and IVC filter removal Chief Complaint: discuss filter and colonoscopy Mortgage Originator Required: No Is patient in pain?: No Allergies bee venom protein (honey bee) Allergy (Verified 11/02/18 08:58) Swelling Medications Acetaminophen [Tylenol Tablet] 650 mg PO Q6H PRN PRN tab 05/27/18 [Rx Confirmed 11/02/18] fenofibrate nanocrystallized 145 mg tablet 145 mg PO DAILY 08/30/18 [History Confirmed 11/02/18] rosuvastatin 5 mg tablet 5 mg PO DAILY 08/30/18 [History Confirmed 11/02/18] PFS Medical History Presence of vena cava filter (Acute) History of hypercholesterolemia (Acute) Deep vein thrombosis (DVT) of left lower extremity (Chronic) Bilateral pulmonary embolism (Acute) Anti-cardiolipin antibody positive (Chronic) Amari filter in place (Acute) History of deviated nasal septum (Acute) Surgical History History of nasal surgery (Acute) History of tonsillectomy (Acute) history amari filter insertion (Acute) Family History Father Diabetes Mother Diabetes Heart disease High cholesterol Uncle Colon cancer Social History (Updated 11/02/18 @ 09:13 by Jame Parr MD) Smoking Status: Never smoker alcohol intake: never substance use type: does not use HPI HPI HPI: FLAKITO BALDWIN is a 58 M who presents to the office today for HPI HPI Surgical H&P: Yes HPI: FLAKITO BALDWIN is a 58 M who presents to the office today for ongoing surgical consultation regarding 2 separate issues today. One is for a colonoscopy. The patient has had a previous history of colon polyps. April 11, 2015 I performed a colonoscopy for him. There was a 10 mm polyp in the distal sigmoid colon that I resected with hot snare and then placed hemostatic clips. There was a 4 mm polyp in the rectum. Diverticulosis was identified. The distal sigmoid polyp was tubulovillous adenoma with focal high-grade dysplasia. The cauterized edge was free of adenomatous change. The rectal polyp was hyperplastic. I recommended follow-up colonoscopy at 3 years and the patient is now returning. Secondarily the patient was previously seen in August to consider vena cava filter removal. Venous duplex imaging of his legs demonstrated improvement. He has been seen by Dr. Justice Key and is felt to be cleared for filter removal. CT scan as noted below demonstrated some mild nonspecific groin adenopathy. Intake Visit Reasons: Remove [place] Filter Chief Complaint: Follow up for thromboembolism. Mortgage Originator Required: No Is patient in pain?: No Allergies bee venom protein (honey bee) Allergy (Verified 08/30/18 07:44) Swelling Medications Acetaminophen [Tylenol Tablet] 650 mg PO Q6H PRN PRN tab 05/27/18 [Rx Confirmed 08/30/18] fenofibrate nanocrystallized 145 mg tablet 145 mg PO DAILY 08/30/18 [History Confirmed 08/30/18] rosuvastatin 5 mg tablet 5 mg PO DAILY 08/30/18 [History Confirmed 08/30/18] [facility] Medical History (Updated 08/30/18 @ 07:55 by Jame Parr MD) Presence of vena cava filter (Acute) History of hypercholesterolemia (Acute) Deep vein thrombosis (DVT) of left lower extremity (Chronic) Bilateral pulmonary embolism (Acute) Anti-cardiolipin antibody positive (Chronic) Amari filter in place (Acute) History of deviated nasal septum (Acute) Surgical History (Updated 08/30/18 @ 07:43 by Nancy Trotter) History of nasal surgery (Acute) History of tonsillectomy (Acute) history amari filter insertion (Acute) Family History (Updated 08/30/18 @ 07:43 by Nancy Trotter) Father Diabetes Mother Diabetes Heart disease High cholesterol Uncle Colon cancer Social History (Updated 08/30/18 @ 07:57 by Jame Parr MD) Smoking Status: Never smoker alcohol intake: never substance use type: does not use HPI: FLAKITO BALDWIN, is a 58 M who presents to the office today for surgical consultation regarding an inferior vena cava filter. The patient is managed by Dr. Key. Venous duplex imaging and coagulation laboratory ordered for October 07, 2018. On May 26, 2018 because of a nonocclusive pulmonary embolus despite anticoagulation I placed a [place] filter. He was initiated on Lovenox and to change to Coumadin. He currently has no complaints. No leg pain. He has been intermittently wearing his support hose. He is being referred for consideration of removal of the filter. HPI HPI HPI: FLAKITO BALDWIN, is a 58 M who presents to the office today for ROS General General: No weight change, appetite, fatigue, colon cancer, breast cancer or weakness HEENT HEENT: No difficulty swallowing, eye injury, eye surgery, swollen glands or hoarseness Endo Endocrine: No thyroid disease, diabetes mellitus, thyroid cancer, Hair loss, heat intolerance or cold intolerance Skin Skin: No rash or changing moles Breast Breast: No left breast lump, right breast lump, nipple discharge, breast pain, abnormal mammogram, abnormal US or breast enlargement Musc Musculoskeletal: No back problems, arthritis, rheumatoid arthritis, gout or joint pain Cardio Cardiovascular: No murmur, pacemaker, heart disease, atrial fibrillation, high blood pressure, heart attack, heart stent, palpitations, shortness of breat with exertion or chest pain Psych Psychiatric: No depression, anxiety or hearing voices Resp Respiratory: No shortness of breath, No sleep apnea, No cough, No COPD, No asthma, No emphysema, No wheezing Gastro Gastrointestinal: No abdominal pain, No nausea or vomiting, No diarrhea, No constipation, No blood in stool, No acid reflux, No hemorrhoids, No ulcers, No gallbladder problem, No black,tarry stools Mariano Hematologic: Yes blood thinners, No blood disorders, No bleeding, No anemia, Yes blood clots Neuro Neurologic: No system reviewed and no additional complaints, except as docu, No as per HPI, No abnormal walking, No abnormal hearing, No abnormal movements, No abnormal speech, No behavioral changes, No burning sensations, No confusion, No seizure-like activity, No unsteadiness, No dizziness, No localized weakness, No frequent falls, No headache(s), No lack of coordination, No loss of vision, No memory loss, No numbness, No other visual disturbances, No radiating pain, No restless legs, No sensory deficit, No fainting, No tingling, No tremor(s), No weakness, No other Exam Const General: cooperative, healthy appearing, comfortable, no acute distress Nutritional Appearance: overweight HENMT Head: normal to inspection Neck Other: Supple, nontender, well-healed stab incision right neck at introduction site for the filter Chest Breast Palpation: No nipple discharge Resp Effort & Inspection: normal respiratory effort Auscultation: clear to auscultation bilaterally Cardio Rate: regular rate Rhythm: regular rhythm Heart Sounds: no murmurs GI Palpation: soft Neuro Cognition: normal cognition Assessment & Plan Problems 1. Presence of vena cava filter Z95.828 Plan I have discussed with him technique, benefit, risks and alternatives to removal of his inferior vena cava filter. He has venous imaging and laboratory scheduled for October 07. If the venous duplex scan is unremarkable and laboratory does not demonstrate some type of significant coagulopathy then I will have him scheduled in October for removal of the filter. He is aware that I should be able to achieve this via a right internal jugular approach but it could require more extensive intervention including a groin approach. He has had an opportunity to ask and have questions answered. He is aware that there are no guarantees as of successful filter removal. We will schedule and proceed as noted. I appreciate the ongoing opportunity of assisting with his surgical care. CC: Dr. Key and Dr. Mary Parr M.D., F.A.C.S. Medications New: rosuvastatin 5 mg PO DAILY fenofibrate nanocrystallized 145 mg PO DAILY Coding Level of Care Code Off vis,est,level 2 Diagnoses Presence of vena cava filter [facility] Imaging Services [address] [place] [address] Abdomen/Pelvis WITH Contrast MR#: [id number]:[id number] Name: FLAKITO BALDWIN #:[id number] : 1960M 58 From: Arpan Graves MD PCP:Mary JAMES,Sharif Status:REG CLI Study:Abdomen/Pelvis WITH Contrast Date of Exam:10/18/18 Exam#[id number] Ordering Dr: Justice Key MD STUDY: CT ABDOMEN AND PELVIS WITH CONTRAST REASON FOR EXAM: Male, 58 years old. Lymph nodes in the left groin. RADIATION DOSAGE (If Supplied By Facility): CTDIvol = ( 20.14 ) mGy, DLP = ( 1407.24 ) mGycm TECHNIQUE: Transaxial images were obtained from the dome of the diaphragm to the symphysis pubis with oral contrast. 100mL IV/Oral Isovue 300 was administered. Sagittal and coronal images were reconstructed. Individualized dose optimization techniques were used for this CT. COMPARISON: Comparison is made with prior study dated July 30, 2017. FINDINGS: The visualized lung bases are unremarkable. The visualized portions of the heart are within normal limits. There is decreased attenuation of the liver consistent with steatosis. Stable hepatomegaly. There are multiple small gallstones. Normal spleen. Normal pancreas. Normal bilateral adrenal glands. Normal right kidney. Normal left kidney. There is a small hiatal hernia. Normal small intestine. There are multiple colonic diverticula consistent with diverticulosis. The appendix is visualized and appears normal. There is scattered atherosclerotic calcification of the abdominal aorta, without a demonstrated aneurysm. There is an IVC filter in place. Normal retroperitoneum. Normal urinary bladder. There are several small benign-appearing lymph nodes in both inguinal regions. Normal abdominal wall. The space narrowing at the L5-S1 level. CT/Abdomen/Pelvis WITH Contrast IMPRESSION: Mild hepatomegaly with fatty infiltration of the liver. Small bilateral inguinal lymph nodes. Electronically Signed: Arpan Graves, at 14:13 EDT , Service support , ROS General General: No weight change, appetite, fatigue, colon cancer, breast cancer or weakness HEENT HEENT: No difficulty swallowing, eye injury, eye surgery, swollen glands or hoarseness Endo Endocrine: No thyroid disease, diabetes mellitus, thyroid cancer, Hair loss, heat intolerance or cold intolerance Skin Skin: No rash or changing moles Breast Breast: No left breast lump, right breast lump, nipple discharge, breast pain, abnormal mammogram, abnormal US or breast enlargement Musc Musculoskeletal: No back problems, arthritis, rheumatoid arthritis, gout or joint pain Cardio Cardiovascular: No murmur, pacemaker, heart disease, atrial fibrillation, high blood pressure, heart attack, heart stent, palpitations, shortness of breat with exertion or chest pain Psych Psychiatric: No depression, anxiety or hearing voices Resp Respiratory: No shortness of breath, No sleep apnea, No cough, No COPD, No asthma, No emphysema, No wheezing Gastro Gastrointestinal: No abdominal pain, No nausea or vomiting, No diarrhea, No constipation, No blood in stool, No acid reflux, No hemorrhoids, No ulcers, No gallbladder problem, No black,tarry stools Mariano Hematologic: Yes blood thinners, No blood disorders, No bleeding, No anemia, Yes blood clots Neuro Neurologic: No weakness Exam Const General: cooperative, healthy appearing, comfortable, no acute distress [facility] Other: Recent excision left druze basal cell carcinoma by Dr. Aj Cohen [facility] dermatology Chest Chest palpation & inspection: normal inspection of the chest Breast Palpation: No nipple discharge Resp Effort & Inspection: normal respiratory effort Auscultation: clear to auscultation bilaterally Cardio Rate: regular rate Rhythm: regular rhythm Heart Sounds: no murmurs GI Palpation: soft, no hepatosplenomegaly Auscultation: normal bowel sounds Extrem General: no calf tenderness bilaterally Psych Affect: normal affect Assessment & Plan Problems 1. Personal history of colonic polyps Z86.010 2. Presence of vena cava filter Z95.828 Plan I recommend the patient a colonoscopy with possible biopsy or polypectomy as indicated. He is aware of the technique, benefits, risks and alternatives. He has had an opportunity to ask and have questions answered. He well-tolerated a previous procedure performed April 2015 under IV sedation. I then recommended the patient a right internal jugular approach for removal of his vena cava filter. In addition I have discussed technique, benefits, risks and alternatives. He also has had an opportunity to ask and have questions answered. We will schedule the filter removal subsequent to the colonoscopy. CC: Dr. Justice Key and Dr. Sharif Parr M.D., F.A.C.S. Coding Level of Care Code Off vis,est,level 2 Diagnoses Personal history of colonic polyps Z86.010 Presence of vena cava filter Z95.828 The patient is undergoing a colonoscopy. We are is felt possibly to be a mass at the ileocecal valve however biopsy demonstrated simply normal terminal ileal mucosa. He is currently not need of having his indwelling vena cava filter. We have discussed the technique, benefits, risks and alternatives of removal. He has had an additional office appointment opportunity to ask and have questions answered. We will proceed as noted. I am anticipating a right internal jugular approach with inferior venacavogram. Jame Parr M.D., F.A.C.S.
--- NOTE | 2018-11-30 11:25 | PCM.OPRPT ---
Problem List (1) Presence of vena cava filter Status: Acute Report of Operation Date of Procedure: 11/30/18 Pre-Operative Diagnosis: Presence of inferior vena cava filter Post-Operative Diagnosis: Same Surgery/Procedure Performed:: Inferior venacavogram with retrieval of inferior vena cava [place] filter Description of Surgical Findings:: Timeout and informed consent was obtained. 58-year-old gentleman was taken to the special procedures lab placed on the table. He had 50 mcg of fentanyl 1 mg Versed is intravenous sedation. The right neck was sterilely prepped and draped. Ultrasound was used to identify the right internal jugular vein. He was placed in Trendelenburg position. Under ultrasound guidance 2% lidocaine was instilled as a local anesthetic. Total 10 cc was used. Under ultrasound guidance a micropuncture needle was inserted into the right internal jugular vein followed by Seldinger wire advancement. Fluoroscopy demonstrated good position. A micropuncture sheath was inserted. 035 J-wire was inserted. A 5 [place] short sheath guide was inserted. Utilizing an 035 J-wire a 5 [place] universal flush catheter was placed into the right common iliac vein. Using 15 cc a second for 25 cc of contrast a inferior venacavogram was obtained. The inferior venacavogram demonstrated the [place] filter be in good position it was superior to the bifurcation of the iliacs there was no evidence of any thrombus within the iliacs or inferior vena cava. The filter appeared to be straight and positioning. So the flush catheter was removed over J-wire and a 5 [place] sheath was exchanged out and a 9 Argentine sheath dilatation was performed prior to placing the 8 Argentine retrieval sheath. A single snare was used to access the hook on top of the filter then external sheath was used to compress the filter two thirds of the way and then the filter was carefully withdrawn from the vena cava. The patient denied any significant discomfort with that. The filter was then pulled back up into the sheath and then was removed as a unit. The filter was inspected was noted to be completely intact. The patient tolerated the procedure well there was no apparent complication. Pressure was held at the exit site for hemostasis and sterile dressings applied. Impression Normal inferior venacavogram. Successful retrievable filter. Jame Parr M.D., F.A.C.S. Type of Anesthesia:: IV Sedation, Local
== END 2018-11-30 12:33 | disposition home or self-care (01) ==
LOC: CLSP 09:24
PROVIDERS: Family Provider Family Medicine; PCP Family Medicine; Referring Provider Surgery; Visit Provider Surgery
DX: Z45.89 Encounter for adjustment and management of other implanted devices (principal); Z95.828 Presence of other vascular implants and grafts; E78.00 Pure hypercholesterolemia, unspecified; Z86.718 Personal history of other venous thrombosis and embolism; Z86.711 Personal history of pulmonary embolism; Z86.010 Personal history of colon polyps; Z79.899 Other long term (current) drug therapy
CPT/HCPCS: 36415; 37193; 76937; 80048; 85027; 99152; 99153; C1773; J7040; Q9967; C1769

== ENCOUNTER → 2019-04-18 07:17 | Outpatient (CLI) | payer OTHER, SELFPAY ==
[2018-11-24 07:44] VITALS: BMI 33.2
--- NOTE | 2019-04-18 07:19 | CT_ITS ---
STUDY: CT ABDOMEN AND PELVIS WITH CONTRAST REASON FOR EXAM: Male, 58 years old. Adenopathy, hx colon polyps removed x 2, IVC filter removed (2019). Denies abdomen pain or problems. RADIATION DOSAGE (If Supplied By Facility): CTDIvol = ( 20.37 ) mGy, DLP = ( 1443.44 ) mGycm TECHNIQUE: Transaxial images were obtained from the dome of the diaphragm to the symphysis pubis with oral contrast. Oral and amp; IV Readi-CAT and amp; 100mL Isovue-300 was administered. Sagittal and coronal images were reconstructed. Individualized dose optimization techniques were used for this CT. COMPARISON: 10/18/2018 FINDINGS: The visualized lung bases are unremarkable. The visualized portions of the heart are within normal limits. Normal liver. There is a solitary gallstone. Normal spleen. Normal pancreas. Normal bilateral adrenal glands. Normal right kidney. Normal left kidney. Normal visualized stomach. Normal small intestine. There are multiple colonic diverticula consistent with diverticulosis. The appendix is visualized and appears normal. Normal abdominal aorta. Normal inferior vena cava. Normal retroperitoneum. Normal urinary bladder. There is a right-sided inguinal hernia containing adipose tissue. Normal osseous structures. CT/Abdomen/Pelvis WITH Contrast IMPRESSION: Normal enhanced CT of the abdomen and pelvis. Electronically Signed: Carlos Vo MD at 13:28 EDT Tel , Service support ,
[2019-04-18 07:51] LABS: Absolute Neutrophil Count 3.3 X10^3/uL (2.0-7.7); Basophil# 0.02 X10^3/uL; Basophil% 0.4 % (0-1); Eosinophil# 0.08 X10^3/uL; Eosinophils% 1.5 % (0-5); Hematocrit 42.3 % (40-54); Lymphocyte % 29.9 % (19-41); Mean Corp Hgb Conc 33.1 g/dL (32-36); Mean Corpuscular Volume 90.8 fL (80-94); Mean Platelet Vol. 8.9 fl (6.2-12.0); Monocyte# 0.37 X10^3/uL; Monocyte% 6.9 % (0-10); NRBC Flagged by Analyzer 0 % (0-5); Neutrophil # 3.26 X10^3/uL (2.7-7.7); Neutrophil % 60.9 % (47-70); Platelet Count 267 K/mm3 (150-450); RBC Distribution Width CV 12.7 % (11.6-14.6); RBC Distribution Width SD 42.2 fl (35.1-43.9); Red Blood Count 4.66 M/mm3 (4.6-6.2); White Blood Count 5.4 K/mm3 (4.4-11.0)
[2019-04-18 08:05] LABS: ALB/GLOB Ratio 1.3 RATIO (0.9-2.4); AST(SGOT) 28 U/L (15-37); Alanine Aminotransfer ALT/SGPT 44 U/L (16-61); Albumin, Serum 4.3 g/dL (3.2-5.0); Alkaline Phosphatase 47 U/L (45-117); Anion Gap 5 (5-15); BUN 21 mg/dL (7-18); BUN/Creat Ratio 16.3 RATIO (10-20); Calcium,Total 8.7 mg/dL (8.5-10.1); Chloride 111 mmol/L (98-107); Creatinine, Serum 1.29 mg/dL (0.70-1.30); EST Glomerular Filtration Rate 61 mL/min (>60); Est Glom Filt Rate - Afr Amer 74 mL/min (>60); Globulin 3.2 g/dL (2.2-4.2); Glucose 93 mg/dL (74-106); LDH 174 U/L (87-241); Protein, Total 7.5 g/dL (6.4-8.2); Prothrombin Time (Protime)PT. 13.3 SECONDS (11.7-14.9); Sodium Level 143 mmol/L (136-145)
[2019-04-18 08:06] LABS: Partial Thromboplast Time 32.8 Seconds (24.1-36.2)
== END ==
PROVIDERS: PCP Family Medicine; Referring Provider Internal Medicine Medical Oncology; Visit Provider Internal Medicine Medical Oncology
DX: R59.0 Localized enlarged lymph nodes (principal); Z86.010 Personal history of colon polyps; I82.402 Acute embolism and thrombosis of unspecified deep veins of left lower extremity; R76.0 Raised antibody titer
CPT/HCPCS: 36415; 74177; 80053; 83615; 85025; 85610; 85730; Q9967

== ENCOUNTER 2019-05-13 12:51 | Emergency (ER) | payer OTHER, SELFPAY ==
[2018-11-24 07:44] VITALS: BMI 33.2
[2019-05-13 12:52] VITALS: BP 148/84; PULSE 86; RESP 14; TEMP 36.9; O2SAT 97; BMI 33.1
--- NOTE | 2019-05-13 13:16 | ED.VIS.GEN ---
History of Present Illness Chief Complaint: Poisoning Informant: Patient Onset: Hours - 1 Context: Sudden Onset Timing: Continuous Quality: burn/sore Location: lips, tongue Current Severity: gone Maximum Severity: Mild Worsened by: nothing Relieved by: rinsing w/ water Associated Symptoms: none Narrative: Patient was using his mouth to siphon some acidic commercial dishwashing detergent out of a jug and accidentally got some in his mouth. He spit it out immediately and did not swallow any. He immediately rinsed his mouth out with water for 15 minutes. He states he has no pain now, but his lips swelled a little, in addition to the tongue burn he sustained. He talked with poison control and they advised that he seek evaluation at the nearest emergency department. He denies any shortness of breath. He has been able to swallow water without any difficulty now. He has no other symptoms. - Past Medical History (1) Bilateral pulmonary embolism Status: Resolved (2) History of hypercholesterolemia Status: Chronic (3) Presence of vena cava filter Status: Chronic (4) Anti-cardiolipin antibody positive Status: Chronic (5) Deep vein thrombosis (DVT) of left lower extremity Status: Resolved Past Medical History - Allergies and Home Meds Allergies/Adverse Reactions: Allergies bee venom protein (honey bee) Allergy (Verified 05/13/19 12:55) Swelling Primary Care Physician: Sharif Hernandez MD [Primary Care Provider] - Surgical History: no surgical history, - Smoking Status: Former smoker - Family History Maternal Family History: Family History (Last Reviewed 11/24/18 @ 07:42 by Nancy Trotter) Father Diabetes Mother Diabetes Heart disease High cholesterol Uncle Colon cancer Family History: Reports: - Review of Systems General: Denies: Chills, Fever, Sweats Eyes: Denies: Visual changes - bilaterally, Diplopia ENT: Reports: - - mouth pain, resolved. swollen lips.. Denies: Rhinorrhea, Sore throat Cardiovascular: Denies: Chest pain, Palpitations Respiratory: Denies: Dyspnea, Cough, Dyspnea on exertion Gastrointestinal: Denies: Abdominal pain, Nausea, Vomiting, Diarrhea, Melena, Hematochezia Genitourinary: Denies: Dysuria, Hematuria, Frequency Musculoskeletal: Denies: Back pain, Extremity Pain Skin: Denies: Rash, Wounds Neurological: Denies: Headache, Weakness, Numbness Physical Exam Vital Signs/Narrative: Vital Signs Temp Pulse Resp BP Pulse Ox 05/13/19 12:52 98.4 F 86 14 148/84 H 97 Inital Vital Signs reviewed: Yes General: Well nourished, Well developed, No Acute Distress - conversive in full sentences. Head: Normocephalic, Atraumatic Eyes: Perrl, EOMI ENT: Moist mucous membranes, No rhinorrhea, - - mild diffuse lip swelling, upper and lower, nontender. nontender anterior tongue superficial ulceration/burn/sloughed, nonedemetous. no trismus. no hoarsness/stridor. no bleeding. no other mucosal heard; POP and palate normal-appearing. Neck: Supple, Nontender, No lymphadenopathy Cardiovascular: Regular rate, Regular rhythm, No murmurs Respiratory: No distress, CTA bilaterally, Chest nontender Abdomen: Soft, Nontender, Nondistended, Normal bowel sounds Skin: Normal color, No rash, No Trauma Neurological: Alert, Oriented x3, Cranial nerves II-XII grossly intact, Normal Strength, Normal Sensation, Normal Gait Psychological: Normal affect, Normal Mood Diagnostic/Tx/Re-eval - Medical Decision Making This patient is well appearing, and at discharge, it had been 2 hours from the time of the burn. He has had no progression of symptoms. Evidence of burn is limited to the anterior tongue and possibly the inside mucosal surface of the lips, the latter of which is very mild and the tongue is very superficially affected. There is no finding of involvement of the palate or posterior oropharynx, and he swallowed none of the chemical. I think he is stable for discharge home. I discussed the case with poison control, they agree based on my findings. Patient was given appropriate discharge instructions, and given the fact that he is pain-free, I do not think he is having continuing chemical burn. He is comfortable with that plan. ED Disposition - Plan for ED Patient: Disposition: Home or Assisted Living Diagnosis: Chemical burn to tongue Instructions: ED BURN Chemical Referrals: Sharif Hernandez MD [Primary Care Provider] - As Needed
[2019-05-13 13:43] VITALS: RESP 16
== END 2019-05-13 13:43 | disposition home or self-care (01) ==
PROVIDERS: Emergency Provider Emergency Medicine; PCP Family Medicine
DX: T55.1X1A Toxic effect of detergents, accidental (unintentional), initial encounter (principal); T28.5XXA Corrosion of mouth and pharynx, initial encounter; Y93.9 Activity, unspecified; Y92.9 Unspecified place or not applicable; D68.61 Antiphospholipid syndrome; Z86.711 Personal history of pulmonary embolism; Z86.718 Personal history of other venous thrombosis and embolism; Z95.828 Presence of other vascular implants and grafts; Z79.01 Long term (current) use of anticoagulants; Z87.891 Personal history of nicotine dependence
CPT/HCPCS: 99282